=== PATIENT | female | born 1940 | race Caucasian/White ===

== ENCOUNTER 2023-12-07 15:24 | Outpatient (OUT) | payer MEDICARE, SELFPAY ==
--- NOTE | 2023-12-07 15:50 | XR_ITS ---
[facility] [id number] Patient Name: NOLAN CRAVEN MRN: [id number] date: 1940 Sex: F Assigned Patient Location: LAB Current Patient Location: Accession/Order Number: [id number] Exam Date: 12/07/2023 15:33 Report Date: 12/08/2023 06:53 At the request of: NAIN HARDY Procedure: XR knee RT 3V PROCEDURE: XR knee RT 3V COMPARISON: None. HISTORY: pain in right knee, effusion right knee FINDINGS: BONES:No acute fracture or dislocation. 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 Marginal osteophyte formation. Chondrocalcinosis. SOFT TISSUES:Negative. No visible soft tissue swelling. EFFUSION:None visible. OTHER: Heterotopic ossification suprapatellar. Vascular calcifications XR/XR knee RT 3V IMPRESSION: Moderate to severe degenerative changes Electronically authenticated by: RAMONITA HARDY Date: 12/08/2023 06:53
--- NOTE | 2023-12-07 15:50 | XR_ITS ---
[address] [id number] Patient Name: NOLAN CRAVEN MRN: [id number] date: 1940 Sex: F Assigned Patient Location: LAB Current Patient Location: Accession/Order Number: [id number] Exam Date: 12/07/2023 15:33 Report Date: 12/08/2023 06:52 At the request of: NAIN HARDY Procedure: XR hip JUSTINA EXAMINATION: XR hip JUSTINA HISTORY: bilateral hip pain COMPARISON: No relevant comparison available. FINDINGS: RIGHT FINDINGS: BONES: No acute fracture or dislocation. Minimal degenerative changes with marginal osteophyte formation. Mixed lytic and sclerotic changes of the pubic symphysis suggesting chronic changes SOFT TISSUES: Negative. No visible soft tissue swelling. OTHER: Negative. LEFT FINDINGS: BONES: No acute fracture or dislocation. Minimal degenerative changes with marginal osteophyte formation SOFT TISSUES: Negative. No visible soft tissue swelling. OTHER: Negative. XR/XR hip JUSTINA IMPRESSION: RIGHT CONCLUSION: Minimal degenerative changes LEFT CONCLUSION: Minimal degenerative changes Electronically authenticated by: RAMONITA HARDY Date: 12/08/2023 06:52
--- NOTE | 2023-12-07 15:50 | XR_ITS ---
[facility] [address] Patient Name: NOLAN CRAVEN MRN: [id number] date: 1940 Sex: F Assigned Patient Location: LAB Current Patient Location: LAB Accession/Order Number: [id number] Exam Date: 12/07/2023 15:33 Report Date: 12/08/2023 06:59 At the request of: NAIN HARDY Procedure: XR lumbar spine min 4V EXAMINATION: XR lumbar spine min 4V HISTORY: low back pain COMPARISON: No relevant comparison available. 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 Severe degenerative spondylosis and facet osteoarthropathy DISC SPACES: Severe disc space narrowing with endplate sclerosis and vacuum disks PARASPINOUS: Negative. No paraspinous abnormality is seen. OTHER: Vascular calcifications XR/XR lumbar spine min 4V IMPRESSION: Severe degenerative changes with rotatory levoscoliosis Electronically authenticated by: RAMONITA HARDY Date: 12/08/2023 06:59
== END 2023-12-07 15:25 | disposition home or self-care (01) ==
LOC: LAB 15:24
PROVIDERS: PCP Family Medicine; Visit Provider Nurse Practitioner
DX: R29.898 Other symptoms and signs involving the musculoskeletal system (principal); M25.551 Pain in right hip; M25.561 Pain in right knee; M25.461 Effusion, right knee; M54.50 Low back pain, unspecified
CPT/HCPCS: 72110; 73522; 73562

== ENCOUNTER 2024-01-20 09:44 | Outpatient (OUT) | payer MEDICARE, SELFPAY ==
--- OUTSIDE RECORDS SUMMARY | 2024-01-20 09:52 | XMS_ITS | CCD ---
Author Organization [facility] Care Team Providers Care Supervisor [facility] Name Role Phone PHYSICIAN, DEFAULT Admitting Unavailable PHYSICIAN, DEFAULT Attending Unavailable NORIEGACORINNE PUCKETT Primary Care Unavailable MOUKARBEL, DR TORRES Admitting Unavailable MOUKARBEL, DR TORRES Attending Unavailable NORIEGA ., DR CORINNE Ferreira Primary Care Unavailable MOUKARBEL, DR TORRES Consulting Unavailable MOUKARBEL, DR TORRES Admitting Unavailable MOUKARBEL, DR TORRES Attending Unavailable NORIEGA ., DR CORINNE Ferreira Primary Care Unavailable MOUKARBEL, DR TORRES Consulting Unavailable MOUKARBEL, DR TORRES Admitting Unavailable MOUKARBEL, DR TORRES Attending Unavailable NORIEGA ., DR CORINNE Ferreira Primary Care Unavailable MOUKARBEL, DR TORRES Consulting Unavailable MOUKARBEL, MELISSA Attending Unavailable MOUKARBEL, MELISSA Attending Unavailable MOUKARBEL, MELISSA Attending Unavailable Cindy, Jessie Marvin Attending Unavailable Cindy, Jessie Marvin Attending Unavailable Cindy, Jessie Marvin Attending Unavailable Cindy, Jessie Marvin Attending Unavailable Cindy, Jessie Marvin Admitting Unavailable Problems Active Problems Problem Classification Problem Date Documented Da te Episodic/Chronic Congestive heart failure; nonhypertensive (2 sources) Chronic diastolic (congestive) heart failure; Translations: [Chronic diastolic (congestive) heart failure] Onset: 11-17-2022 Chronic Essential hypertension (6 sources) Essential (primary) hypertension; Translations: [ESSENTIAL PRIMARY HYPERTENSION] Onset: 02-19-2022 Chronic Heart valve disorders (6 sources) Nonrheumatic tricuspid (valve) insufficiency; Translations: [NONRHEUMATIC TRICUSPID VALVE INSUFF] Onset: 07-29-2022 Chronic Pulmonary heart disease (2 sources) Pulmonary hypertension due to left heart disease; Translations: [Pulmonary hypertension due to left heart disease] Onset: 11-17-2022 Chronic Past or Other Problems Problem Classification Problem Date Documented Da te Episodic/Chronic Cardiac dysrhythmias (2 sources) Palpitations; Translations: [Palpitations] Onset: 07-29-2022 Episodic Other lower respiratory disease (6 sources) Shortness of breath; Translations: [SHORTNESS OF BREATH] Onset: 12-22-2022 Episodic Other lower respiratory disease (3 sources) Other forms of dyspnea; Translations: [OTHER FORMS OF DYSPNEA] Onset: 11-17-2022 Episodic Results Test Name Value Interpretation Reference Range Facility Ambulatory Visit Summaryon 0 12-16-2023 Ambulatory Visit Summary GISEL BENNETT :1940 Visit Date:12/16/2023 Ambulatory Visit Instructions Your Diagnosis Arthritis of right knee Hip pain, bilateral Scoliosis BMI 27.0-27.9,adult Non-smoker Your Care Team Attending Physician - Jessie Ty Primary Care Physician - Jessie Ty This Is Your Medications List albuterol (Albuterol (Eqv-Ventolin HFA) 90 mcg/inh inhalation aerosol) alendronate (alendronate 35 mg Tab) amlodipine (amLODIPine 5 mg Tab) aspirin (aspirin 81 mg Oral EC Tab) celecoxib (celecoxib 200 mg Cap) formoterol-mometasone (Dulera 100 mcg-5 mcg/inh inhalation aerosol) furosemide (furosemide 20 mg Tab) metoprolol (Lopressor 25 mg oral tablet) montelukast (montelukast 10 mg Tab) pantoprazole (Pantoprazole [address] Tab) [Image Removed: STOP]Stop taking these medications gabapentin (gabapentin 300 mg Cap) Procedures Performed Cardiac catheter (2013), Hiatal hernia (2013), Colonoscopy (2011), Surgery, DARLENE BSO - Total abdominal hysterectomy and bilateral salpingo-oophorectomy . Discharge Vitals Heart Rate (Peripheral) 98 Respiratory Rate 16 Blood Pressure 108/76 Height 151 cm Height 59 in Weight 63.4 kg Weight 139.48 lb BMI 27.81 Medications What How Much When Why Instructions New celecoxib (celecoxib 200 mg Cap) 1 Capsules By Mouth Every day Leg weakness, bilateral Hip pain, bilateral Right knee pain Swelling of right knee joint Low back pain BMI 27.0-27.9,adult Refills: 1 Pickup at [facility] Unchanged albuterol (Albuterol (Eqv-Ventolin HFA) 90 mcg/ inh inhalation aerosol) 2 Puffs Inhalation Every 6 hours Wellness examination Essential hypertension Fatigue Non-smoker BMI 27.0-27.9,adult Unchanged alendronate (alendronate 35 mg Tab) 1 Tablets By Mouth Every 7 days Unchanged amlodipine (amLODIPine 5 mg Tab) 1 Tablets By Mouth Every day Unchanged aspirin (aspirin 81 mg Oral EC Tab) 1 Tablets By Mouth Every day Unchanged formoterol-mometasone (Dulera 100 mcg-5 mcg/ inh inhalation aerosol) 2 Puffs Inhalation 2 times a day rinse mouth and throat after use Unchanged furosemide (furosemide 20 mg Tab) 1 Tablets By Mouth Every day Unchanged metoprolol (Lopressor 25 mg oral tablet) 1 Tablets By Mouth Every day Unchanged montelukast (montelukast 10 mg Tab) 1 Tablets By Mouth Once a day (in the evening) Unchanged pantoprazole (Pantoprazole [address] Tab) 1 Tablets By Mouth Every day Pharmacy Information [facility]: [address], [place] [id number] [phone] What How Much When Why Comments Stop Taking gabapentin (gabapentin 300 mg Cap) 1 Capsules By Mouth Once a day (at bedtime) Leg weakness, bilateral Hip pain, bilateral Right knee pain Swelling of right knee joint Low back pain BMI 27.0-27.9,adult Allergies No Known Allergies Problems Ongoing - Any problem that you are currently receiving treatment for. Arthritis of right knee BMI 27.0-27.9,adult Essential hypertension Fatigue Hip pain, bilateral Leg weakness, bilateral Low back pain Right knee pain Scoliosis Swelling of right knee joint Wellness examination Patient Survey You may receive a survey via text or e-mail asking about your office visit. Please share your experience with us by completing your survey. We appreciate your feedback and thank you for choosing us for your care. Normal [facility] Family Medicine Office/Clini c Noteon 12-16-2023 Family Medicine Office/Clinic Note HPI Staff Gisel is a 83 year old female presenting for 2 week follow up SAURABH 12/02/23 Bilateral leg weakness, x-rays ordered, started Celebrex,Medrol dose pack and Gabapentin. Pending improvement EMG and PT or pain management is discussed. pt states legs are feeling better and swelling is down. pt states knees aren't to bad. History of Present Illness pt presents today to discuss x ray results Review of Systems PHQ Score Initial Depression Screen Score: 0 SCORE ROS - Provider Constitutional: no fever, no chills, no sweats, no fatigue Respiratory: no shortness of breath, no cough, no orthopnea, no wheezing. Cardiovascular: no chest pain, no palpitations, no edema. Neurologic: no headache, no dizziness, no numbness, no weakness. Physical Exam Vitals & Measurements HR: 98(Peripheral) RR: 16 BP: 108/76 SpO2: 98% HT: 59 in HT: 151 cm WT: 63.4 kg WT: 139.48 lb BMI: 27.81 General: alert, no acute distress ENMT: oral mucosa moist, no pharyngeal erythema or exudate Cardiovascular: regular rate and rhythm, normal peripheral perfusion Respiratory: Lungs CTA, respirations non labored Extremities: no deformity, no trauma Neurological: oriented x 4, LOC appropriate for age, CN II-XII intact, motor strength equal & normal bilaterally, speech normal Assessment/Plan 1. Arthritis of right knee (M17.11: Unilateral primary osteoarthritis, right knee) right knee x ray is bone on bone. would like to refer to pain or ortho but patient does not want to do that at this time. states celebrex is really helping with the pain. she will contact us if pain returns. 2. Hip pain, bilateral (M25.551: Pain in right hip) arthritis in both hips. discussed referral to ortho. does nto want to do that at this time Ordered: celecoxib, 200 mg = 1 cap(s), Oral, Daily, # 90 cap(s), Refills(s) 1, Pharmacy: [facility], 151, cm, 12/16/23 15:40:00 EST, Height/Length Dosing, 63.4, kg, 12/16/23 15:40:00 EST, Weight Dosing celecoxib, 200 mg = 1 cap(s), Oral, Daily, # 30 cap(s), Refills(s) 0, Pharmacy: [facility], 151, cm, 12/02/23 15:29:00 EST, Height/Length Dosing, 140.4, kg, 12/02/23 15:29:00 EST, Weight Dosing 3. Scoliosis (M41.9: Scoliosis, unspecified) discussed s ray results. discussed referrral to ortho or pain management 4. BMI 27.0-27.9,adult (Z68.27: Body mass index [BMI] 27.0-27.9, adult) BMI education compelte Ordered: celecoxib, 200 mg = 1 cap(s), Oral, Daily, # 90 cap(s), Refills(s) 1, Pharmacy: [facility], 151, cm, 12/16/23 15:40:00 EST, Height/Length Dosing, 63.4, kg, 12/16/23 15:40:00 EST, Weight Dosing celecoxib, 200 mg = 1 cap(s), Oral, Daily, # 30 cap(s), Refills(s) 0, Pharmacy: [facility], 151, cm, 12/02/23 15:29:00 EST, Height/Length Dosing, 140.4, kg, 12/02/23 15:29:00 EST, Weight Dosing 5. Non-smoker (Z78.9: Other specified health status) continue not smoking Orders: montelukast, 10 mg = 1 tab(s), Oral, qPM, # 30 tab(s), Refills(s) 2, Pharmacy: [facility] Follow-up No qualifying data available Problem List/Past Medical History Ongoing Arthritis of right knee BMI 27.0-27.9,adult Essential hypertension Fatigue Hip pain, bilateral Leg weakness, bilateral Low back pain Right knee pain Scoliosis Swelling of right knee joint Wellness examination Historical No qualifying data Procedure/Surgical History Cardiac catheter (2013), Hiatal hernia (2013), Colonoscopy (2011), Surgery, DARLENE BSO - Total abdominal hysterectomy and bilateral salpingo-oophorectomy . Medications Albuterol (Eqv-Ventolin HFA) 90 mcg/inh inhalation aerosol, 2 puff(s), Inhalation, q6hr alendronate 35 mg Tab, 35 mg= 1 tab(s), Oral, q7day, 3 refills amLODIPine 5 mg Tab, 5 mg= 1 tab(s), Oral, Daily aspirin 81 mg Oral EC Tab, 81 mg= 1 tab(s), Oral, Daily celecoxib 200 mg Cap, 200 mg= 1 cap(s), Oral, Daily, 1 refills Dulera 100 mcg-5 mcg/inh inhalation aerosol, 2 puff(s), Inhalation, BID, 11 refills furosemide 20 mg Tab, 20 mg= 1 tab(s), Oral, Daily Lopressor 25 mg oral tablet, 25 mg= 1 tab(s), Oral, Daily montelukast 10 mg Tab, 10 mg= 1 tab(s), Oral, qPM, 3 refills Pantoprazole [address] Tab, 40 mg= 1 tab(s), Oral, Daily Allergies No Known Allergies Social History Tobacco Never (less than 100 in lifetime) Tobacco Use:. Never Smokeless Tobacco Use:. Household tobacco concerns: No., 12/16/2023 Family History Stroke: Mother and Sister. Immunizations Vaccine Date Status Comments influenza virus vaccine, inactivated 08/06/2023 Given SARS-CoV-2 (COVID-19) [id number] 08/25/2022 Recorded 2023-11-30: [id number] influenza virus vaccine, inactivated 08/31/2021 Recorded SARS-CoV-2 (COVID-19) mRNA-1273 vaccine 08/07/2021 Recorded SARS-CoV-2 (COVID-19) mRNA-1273 vaccine 11/28/2020 Recorded SARS-CoV-2 (COVID-19) mRNA-1273 vaccine 10/25/2020 Recorded influenza virus vaccine, inactivated 08/13/2019 Recorded influenza virus vaccine, inactivated 08/25/2018 Recorded (more content not included)... Normal [facility] Comment on above: Result Comment: Elec tronically Signed By: Jessie Ty\.br\Date and Time Signed: 12/16/23 15:59 EST Physician Orderon 12-03-2023 Physician Order [id number] [facility] Ambulatory Visit Summaryon 0 12-02-2023 Ambulatory Visit Summary GISEL BENNETT :1940 Visit Date:12/02/2023 Ambulatory Visit Instructions Your Diagnosis Leg weakness, bilateral Hip pain, bilateral Right knee pain Swelling of right knee joint Low back pain BMI 27.0-27.9,adult Pain in left hip Your Care Team Attending Physician - Jessie Ty Primary Care Physician - Jessie Ty This Is Your Medications List albuterol (Albuterol (Eqv-Ventolin HFA) 90 mcg/inh inhalation aerosol) alendronate (alendronate 35 mg Tab) alendronate (alendronate 35 mg Tab) amlodipine (amLODIPine 5 mg Tab) aspirin (aspirin 81 mg Oral EC Tab) formoterol-mometasone (Dulera 100 mcg-5 mcg/inh inhalation aerosol) formoterol-mometasone (Dulera 100 mcg-5 mcg/inh inhalation aerosol) furosemide (furosemide 20 mg Tab) metoprolol (Lopressor 25 mg oral tablet) montelukast (montelukast 10 mg Tab) montelukast (montelukast 10 mg Tab) pantoprazole (Pantoprazole [address] Tab) Procedures Performed Cardiac catheter (2013), Hiatal hernia (2013), Colonoscopy (2011), Surgery, DARLENE BSO - Total abdominal hysterectomy and bilateral salpingo-oophorectomy . Discharge Vitals Heart Rate (Peripheral) 76 Blood Pressure 132/70 Height 151 cm Height 59 in Weight 63.68 kg Weight 140.096 lb BMI 27.93 What to do next Scheduled Follow-Up Appointments Thursday 3:40 PM EST With: Jessie Ty Where: [facility] Family Medicine Office/Clini c Noteon 12-02-2023 Family Medicine Office/Clinic Note Chief Complaint weakness and pain in legs HPI Staff Patient presents for weakness in legs. Patient is present with daughter. Started 2 weeks ago. Bilateral leg pain radiating down legs into feet More on the right than in the left. Has been using a walker at times due to pain and weakness. Has tried Tylonol effective some. Has had a hx of blood clot in left leg in the past. flu: UTD 08/06/23 History of Present Illness weakness in JUSTINA legs, low back pain, JUSTINA hip pain, right knee pain and swelling Review of Systems PHQ Score Initial Depression Screen Score: 0 SCORE ROS - Provider Constitutional: no fever, no chills, no sweats, no fatigue Respiratory: no shortness of breath, no cough, no orthopnea, no wheezing. Cardiovascular: no chest pain, no palpitations, no edema. Neurologic: no headache, no dizziness, no numbness, no weakness. Physical Exam Vitals & Measurements HR: 76(Peripheral) BP: 132/70 HT: 59 in HT: 151 cm WT: 63.68 kg WT: 140.096 lb BMI: 27.93 General: alert, no acute distress ENMT: oral mucosa moist, no pharyngeal erythema or exudate Cardiovascular: regular rate and rhythm, normal peripheral perfusion Respiratory: Lungs CTA, respirations non labored Extremities: no deformity, no trauma Neurological: oriented x 4, LOC appropriate for age, CN II-XII intact, motor strength equal & normal bilaterally, speech normal Assessment/Plan 1. Leg weakness, bilateral (R29.898: Other symptoms and signs involving the musculoskeletal system) pt c/o leg weakness that has worsened the last couple of weeks. had to start using a walker. will order x rays, celebrex, medrol dose pack and gabapentin. discussed EMG but pt would like to see if gabapentin helps with leg pain before doing that. pt to return in 2 weeks to go over radiology reports. may consider referral to PT or Pain management depending on results. Ordered: celecoxib, 200 mg = 1 cap(s), Oral, Daily, # 30 cap(s), Refills(s) 0, Pharmacy: [facility], 151, cm, 12/02/23 15:29:00 EST, Height/Length Dosing, 140.4, kg, 12/02/23 15:29:00 EST, Weight Dosing gabapentin, 300 mg = 1 cap(s), Oral, Once a day (at bedtime), # 30 cap(s), Refills(s) 0, Pharmacy: [facility], 151, cm, 12/02/23 15:29:00 EST, Height/Length Dosing, 140.4, kg, 12/02/23 15:29:00 EST, Weight Dosing methylPREDNISolone, = 1 packet(s), Oral, As Directed, as directed on package labeling, X 6 day(s), # 21 tab(s), Refills(s) 0, Pharmacy: [facility], 151, cm, 12/02/23 15:29:00 EST, Height/Length Dosing, 140.4, kg, 12/02/23 15:29:00 EST, Weight Dosing 2. Hip pain, bilateral (M25.551: Pain in right hip) Bilateral hip pain that shoots down her legs to her kenees Ordered: celecoxib, 200 mg = 1 cap(s), Oral, Daily, # 30 cap(s), Refills(s) 0, Pharmacy: [facility], 151, cm, 12/02/23 15:29:00 EST, Height/Length Dosing, 140.4, kg, 12/02/23 15:29:00 EST, Weight Dosing gabapentin, 300 mg = 1 cap(s), Oral, Once a day (at bedtime), # 30 cap(s), Refills(s) 0, Pharmacy: [facility], 151, cm, 12/02/23 15:29:00 EST, Height/Length Dosing, 140.4, kg, 12/02/23 15:29:00 EST, Weight Dosing methylPREDNISolone, = 1 packet(s), Oral, As Directed, as directed on package labeling, X 6 day(s), # 21 tab(s), Refills(s) 0, Pharmacy: [facility], 151, cm, 12/02/23 15:29:00 EST, Height/Length Dosing, 140.4, kg, 12/02/23 15:29:00 EST, Weight Dosing 3. Right knee pain (M25.561: Pain in right knee) right knee is painful and swollen. Ordered: celecoxib, 200 mg = 1 cap(s), Oral, Daily, # 30 cap(s), Refills(s) 0, Pharmacy: [facility], 151, cm, 12/02/23 15:29:00 EST, Height/Length Dosing, 140.4, kg, 12/02/23 15:29:00 EST, Weight Dosing gabapentin, 300 mg = 1 cap(s), Oral, Once a day (at bedtime), # 30 cap(s), Refills(s) 0, Pharmacy: [facility], 151, cm, 12/02/23 15:29:00 EST, Height/Length Dosing, 140.4, kg, 12/02/23 15:29:00 EST, Weight Dosing methylPREDNISolone, = 1 packet(s), Oral, As Directed, as directed on package labeling, X 6 day(s), # 21 tab(s), Refills(s) 0, Pharmacy: [facility], 151, cm, 12/02/23 15:29:00 EST, Height/Length Dosing, 140.4, kg, 12/02/23 15:29:00 EST, Weight Dosing 4. Swelling of right knee joint (M25.461: Effusion, right knee) see above . x ray ordered Ordered: celecoxib, 200 mg = 1 cap(s), Oral, Daily, # 30 cap(s), Refills(s) 0, Pharmacy: [facility], 151, cm, 12/02/23 15:29:00 EST, Height/Length Dosing, 140.4, kg, 12/02/23 15:29:00 EST, Weight Dosing gabapentin, 300 mg = 1 cap(s), Oral, Once a day (at bedtime), # 30 cap(s), Refills(s) 0, Pharmacy: [facility], 151, cm, 12/02/23 15:29:00 EST, Height/Length Dosing, 140.4, kg, 12/02/23 15:29:00 EST, Weight Dosing methylPREDNISolone, = 1 packet(s), Oral, As Directed, as directed on package labeling, X 6 day(s), # 21 tab(s), Refills(s) 0, Pharmacy: [facility], 151, cm, 12/02/23 15:29:00 EST, Height/Length Dosing, 140.4, kg, 12/02/23 15:29:00 EST, Michelle (more content not included)... [facility] Comment on above: Result Comment: Elec tronically Signed By: Jessie Ty\.br\Date and Time Signed: 12/02/23 17:02 EST [facility] - Clinical Noteon [facility] - Clinical Note [id number] [facility] Ambulatory Visit Summaryon 1 Ambulatory Visit Summary GISEL BENNETT :1940 Visit Date:08/06/2023 Ambulatory Visit Instructions Your Diagnosis BMI 27.0-27.9,adult Non-smoker Wellness examination Your Care Team Attending Physician - Jessie Ty Primary Care Physician - Jessie Ty This Is Your Medications List alendronate (alendronate 35 mg Tab) amlodipine (amLODIPine 5 mg Tab) aspirin (aspirin 81 mg Oral EC Tab) formoterol-mometasone (Dulera 100 mcg-5 mcg/inh inhalation aerosol) furosemide (furosemide 20 mg Tab) metoprolol (Lopressor 25 mg oral tablet) montelukast (montelukast 10 mg Tab) pantoprazole (Pantoprazole [address] Tab) Procedures Performed Cardiac catheter (2013), Hiatal hernia (2013), Colonoscopy (2011), Surgery, DARLENE BSO - Total abdominal hysterectomy and bilateral salpingo-oophorectomy . Discharge Vitals Heart Rate (Peripheral) 62 Respiratory Rate 18 Blood Pressure 116/72 Height 151 cm Height 59 in Weight 62.55 kg Weight 137.61 lb BMI 27.43 Medications What How Much When Instructions Unchanged alendronate (alendronate 35 mg Tab) 1 Tablets By Mouth Every week Unchanged amlodipine (amLODIPine 5 mg Tab) 1 Tablets By Mouth Every day Unchanged aspirin (aspirin 81 mg Oral EC Tab) 1 Tablets By Mouth Every day Unchanged formoterol-mometasone (Dulera 100 mcg-5 mcg/ inh inhalation aerosol) 2 Puffs Inhalation 2 times a day Unchanged furosemide (furosemide 20 mg Tab) 1 Tablets By Mouth Every day Unchanged metoprolol (Lopressor 25 mg oral tablet) 1 Tablets By Mouth Every day Unchanged montelukast (montelukast 10 mg Tab) 1 Tablets By Mouth Once a day (in the evening) Unchanged pantoprazole (Pantoprazole [address] Tab) 1 Tablets By Mouth Every day Allergies No Known Allergies Problems Ongoing - Any problem that you are currently receiving treatment for. Essential hypertension Wellness examination Patient Survey You may receive a survey via text or e-mail asking about your office visit. Please share your experience with us by completing your survey. We appreciate your feedback and thank you for choosing us for your care. Normal [facility] Auto Diffon 08-06-2023 Basophils/100 WBC (Bld) 0.7 % Normal 0.0-2.0 [facility] Comment on above: Order Comment: Order Added by Discern Expert. Performed By: #### 1 [id number], [id number], [id number], [id number], [id number] #### [facility] [address] [place] [address] Basophils/Leukocy mckenzie Auto (Bld) [Pure # fraction] 0.0 E9/L Normal 0.0-0.2 [facility] Comment on above: Order Comment: Order Added by Discern Expert. Performed By: #### 1 [id number], [id number], [id number], [id number], [id number] #### [facility] [address] [place] [address]697 Eosinophils/100 WBC (Bld) 2.3 % Normal 0.0-8.0 [facility] Comment on above: Order Comment: Order Added by Discern Expert. Performed By: #### 1 [id number], [id number], 0277125, [id number], [id number] #### [facility] [address] [place] [address]394 Eosinophils/Leuko cytes Auto (Bld) [Pure # fraction] 0.1 E9/L Normal 0.0-0.5 [facility] Comment on above: Order Comment: Order Added by Discern Expert. Performed By: #### 1 [id number], [id number], [id number], [id number], [id number] #### [facility] [address] [place] [address]507 Lymphocytes/100 WBC (Bld) 21.4 % Normal 14.0-50.0 [facility] Comment on above: Order Comment: Order Added by Discern Expert. Performed By: #### 1 [id number], 9409977, 0405104, 1790024, [id number] #### [facility] [address] [place] [address]374 Lymphocytes/Leuko cytes Auto (Bld) [Pure # fraction] 1.1 E9/L Normal 1.0-4.0 [facility] Comment on above: Order Comment: Order Added by Discern Expert. Performed By: #### 1 [id number], 2335223, 3978135, 4913373, 6489644 #### [facility] [address] [place] [address]759 Monocytes/100 WBC (Bld) 12.2 % Normal 4.0-14.0 [facility] Comment on above: Order Comment: Order Added by Discern Expert. Performed By: #### 1 [id number], 1933901, 5170020, 6550720, [id number] #### [facility] [address] [place] [address] Monocytes/Leukocy mckenzie Auto (Bld) [Pure # fraction] 0.6 E9/L Normal 0.2-1.0 [facility] Comment on above: Order Comment: Order Added by Discern Expert. Performed By: #### 1 [id number], 0364922, 3001308, 6465927, [id number] #### [facility] [address] [place] [address] Neutrophils/100 WBC (Bld) 63.4 % Normal 36.0-75.0 [facility] Comment on above: Order Comment: Order Added by Discern Expert. Performed By: #### 1 [id number], 9371823, 0355344, 3919764, 4949142 #### [facility] [address] [place] [address] Neutrophils/Leuko cytes Auto (Bld) [Pure # fraction] 3.2 E9/L Normal 2.0-7.5 [facility] Comment on above: Order Comment: Order Added by Discern Expert. Performed By: #### 1 [id number], 4419099, 1550998, 9266987, [id number] #### [facility] [address] [place] [address]21 CBC w/ Auto Diffon 3 Erythrocyte distribution width (RBC) [Ratio] 15.4 % High 10.9-14.2 [facility] Comment on above: Performed By: #### 1 [id number], 7446476, 0854014, 6724133, 4409207 #### [facility] [address] [place] [address] Hematocrit (Bld) [Volume fraction] 42.5 % Normal 34.0-46.0 [facility] Comment on above: Performed By: #### 1 [id number], 1842468, 5966813, 8039768, 4552104 #### [facility] [address] [place] [address] 60028 Hemoglobin (Bld) [Mass/Vol] 13.8 g/dL Normal 12.0-16.0 [facility] Comment on above: Performed By: #### 1 [id number], 4635921, 3496373, 4820897, 8450149 #### [facility] [address] [place] [address] MCH (RBC) [Entitic mass] 28.1 pg Normal 27.0-34.0 [facility] Comment on above: Performed By: #### 1 [id number], 2415794, 7015518, 6389346, 2443048 #### [facility] [address] [place] [address] MCHC (RBC) [Mass/Vol] 32.4 g/dL Normal 31.4-36.0 [facility] Comment on above: Performed By: #### 1 [id number], 0282656, 8669427, 7872672, 4322900 #### [facility] [address] [place] [address] 14781 MCV (RBC) [Entitic vol] 86.7 fL Normal 80.0-100.0 [facility] Comment on above: Performed By: #### 1 [id number], 0015823, 8595308, 9029755, 1790954 #### [facility] [address] [place] [address]30 Platelet mean volume (Bld) [Entitic vol] 9.7 fL Normal 6.4-10.8 [facility] Comment on above: Performed By: #### 1 [id number], 2867470, 8499357, 4261807, [id number] #### [facility] [address] [place] [address] Platelets (Bld) [#/Vol] 286.0 E9/L Normal 150.0-500.0 [facility] Comment on above: Performed By: #### 1 [id number], 7945957, 7434476, 4174587, 4984416 #### [facility] [address] [place] [address] RBC (Bld) [#/Vol] 4.9 E12/L Normal 4.3-5.9 [facility] Comment on above: Performed By: #### 1 6602667, 0178547, 3394853, 0456606, 6108915 #### [facility] [address] [place] [address] WBC corrected for nucl RBC Auto (Bld) [#/Vol] 5.1 E9/L Normal 4.0-11.0 [facility] Comment on above: Performed By: #### 1 7532311, 2455496, 2498776, 2593507, 7304562 #### [facility] [address] [place] [address] CMPon 08-06-2023 Albumin [Mass/Vol] 4.2 g/dL Normal 3.3-5.0 [facility] Comment on above: Performed By: #### 1 5881493, 1436996, 7663345, 7971155, 8879955 #### [facility] [address] [place] [address] Albumin/Globulin (S) [Mass conc ratio] 1.2 Normal 1.1-2.2 [facility] Comment on above: Performed By: #### 1 6479192, 7752902, 7853815, 8414659, 4331562 #### [facility] [address] [place] [address] ALP [Catalytic activity/Vol] 52 Int._Unit/L Normal 21-98 [facility] Comment on above: Performed By: #### 1 7534759, 5498507, 2049093, 5663130, 4479655 #### [facility] [address] [place] [address] ALT No additional P-5'-P [Catalytic activity/Vol] 15 Int._Unit/L Normal 6-46 [facility] Comment on above: Performed By: #### 1 1928276, 5652677, 3030712, 3224811, 3235075 #### [facility] [address] [place] [address] Anion gap [Moles/Vol] 6 mmol/L Normal 6-16 [facility] Comment on above: Performed By: #### 1 7430422, 9111497, 9994457, 1167443, 7993051 #### [facility] [address] [place] [address] AST [Catalytic activity/Vol] 19 Int._Unit/L Normal 5-43 [facility] Comment on above: Performed By: #### 1 9115792, 5238775, 9492850, 6488595, 8991469 #### [facility] [address] [place] [address] Bilirubin [Mass/Vol] 0.4 mg/dL Normal 0.0-1.1 [facility] Comment on above: Performed By: #### 1 5837093, 7367095, 6261302, 0030356, 8110023 #### [facility] [address] [place] [address] Calcium [Mass/Vol] 9.0 mg/dL Normal 8.9-11.1 [facility] Comment on above: Performed By: #### 1 1729504, 0233548, 6429013, 9374260, 0313556 #### [facility] [address] [place] [address] Chloride [Moles/Vol] 107 mmol/L Normal 101-111 [facility] Comment on above: Performed By: #### 1 6079758, 4562993, 3585447, 2772934, 6146223 #### [facility] [address] [place] [address] CO2 [Moles/Vol] 28 mmol/L Normal 21-31 [facility] Comment on above: Performed By: #### 1 7946609, 4094141, 5277929, 5310659, 1425832 #### [facility] [address] [place] [address] Creatinine [Mass/Vol] 1.0 mg/dL Normal 0.5-1.3 [facility] Comment on above: Performed By: #### 1 5029046, 6071255, 8639467, 4243071, 0496404 #### [facility] [address] [place] [address] Globulin (S) [Mass/Vol] 3.4 g/dL Normal 1.4-4.0 [facility] Comment on above: Performed By: #### 1 9181412, 4486030, 5866208, 3148534, 8459577 #### [facility] [address] [place] [address] Glucose [Mass/Vol] 101 mg/dL Normal 55-199 [facility] Comment on above: Result Comment: If t his glucose result represents a fasting glucose, interpretation should refer to the following reference range: 55-99 mg/dL Performed By: #### 1 2556601, 7431315, 6040441, 2989728, 5707594 #### [facility] [address] [place] [address] Potassium [Moles/Vol] 4.3 mmol/L Normal 3.5-5.3 [facility] Comment on above: Performed By: #### 1 6022552, 3419389, 8802874, 4987462, 6995716 #### [facility] [address] [place] [address] Protein [Mass/Vol] 7.6 g/dL Normal 6.0-7.8 [facility] Comment on above: Performed By: #### 1 3111453, 9516962, 6831898, 4427674, 8541559 #### [facility] [address] [place] [address] Sodium [Moles/Vol] 137 mmol/L Normal 135-145 [facility] Comment on above: Performed By: #### 1 7360708, 1701531, 0988780, 1457569, 0303294 #### [facility] [address] [place] [address] Urea nitrogen [Mass/Vol] 22 mg/dL High 5-21 [facility] Comment on above: Performed By: #### 1 5457898, 3615904, 3998250, 0610504, 3601317 #### [facility] [address] [place] [address] Urea nitrogen/Creatini ne [Mass ratio] 22 No Units High 10- [facility] Comment on above: Performed By: #### 1 0018912, 9235030, 7825960, 0863712, 9033162 #### [facility] [address] [place] [address] Consent for Flu Vaccineon Consent for Flu Vaccine [id number] .00TIFF Normal [facility] Family Medicine Office/Clini c Noteon 08-06-2023 Family Medicine Office/Clinic Note HPI Staff Gisel is a 83 year old female presenting to psychiatric hospital care Establish Care: History: Any previous diagnosis: osteoporosis, asthma, vitamin D deficiency History of seeing any specialist: Ratings Analyst Dr Colon When was your last doctors visit: Last provider: Dr Noriega Any recent labs: none within the last year, did just have TSH checked at [facility] about 1-2 weeks ago Health Maintenance UTD: Colonoscopy: 05/01/21 Mammogram: aged out Pelvic/Pap: aged out Acute: Current issues/complaints: pt need refill on Dulera sent to [facility], then Alendronate and montelukast sent to [facility] . Right hip discomfort intermittent feels like hips coming out of socket. onset 1-2 months ago History of [facility] will need annual labs Review of Systems PHQ Score Initial Depression Screen Score: 0 ROS - Provider Constitutional: no fever, no chills, no sweats, no fatigue Respiratory: no shortness of breath, no cough, no orthopnea, no wheezing. Cardiovascular: no chest pain, no palpitations, no edema. Neurologic: no headache, no dizziness, no numbness, no weakness. Physical Exam Vitals & Measurements HR: 62(Peripheral) RR: 18 BP: 116/72 HT: 59 in HT: 151 cm WT: 62.55 kg WT: 137.61 lb BMI: 27.43 General: alert, no acute distress ENMT: oral mucosa moist, no pharyngeal erythema or exudate Cardiovascular: regular rate and rhythm, normal peripheral perfusion Respiratory: Lungs CTA, respirations non labored Extremities: no deformity, no trauma Neurological: oriented x 4, LOC appropriate for age, CN II-XII intact, motor strength equal & normal bilaterally, speech normal Assessment/Plan 1. Wellness examination (Z00.00: Encounter for general adult medical examination without abnormal findings) pt presents for wellness visit. will need labs today. pt c/o right sided hip pain but does not always hurt. suggested Tylenol arthritis. all questions answered. RTC as needed Ordered: influenza virus vaccine, inactivated, 0.7 mL, Injection, IntraMuscular, Once, Stop date 08/06/23 10:00:00 EDT, Routine, Start date 08/06/23 10:00:00 EDT CBC w/ Auto Diff Comprehensive Metabolic Panel Lab Specimen Collect 83042 Lipid Panel 2. Essential hypertension (I10: Essential (primary) hypertension) BP at goal. will send refills on meds. will draw labs Ordered: CBC w/ Auto Diff Comprehensive Metabolic Panel Lab Specimen Collect 40349 Lipid Panel 3. Fatigue (R53.83: Other fatigue) will draw labs today Ordered: CBC w/ Auto Diff Comprehensive Metabolic Panel Lab Specimen Collect 03331 Lipid Panel 4. Non-smoker (Z78.9: Other specified health status) continue not smoking Ordered: influenza virus vaccine, inactivated, 0.7 mL, Injection, IntraMuscular, Once, Stop date 08/06/23 10:00:00 EDT, Routine, Start date 08/06/23 10:00:00 EDT 5. BMI 27.0-27.9,adult (Z68.27: Body mass index [BMI] 27.0-27.9, adult) BMI education complete Ordered: influenza virus vaccine, inactivated, 0.7 mL, Injection, IntraMuscular, Once, Stop date 08/06/23 10:00:00 EDT, Routine, Start date 08/06/23 10:00:00 EDT Encounter for immunization (Z23: Encounter for immunization) flu shot given in office Ordered: FIRST VACCINE w/o Secretary To The Vice President Admin Charge [address] Orders: alendronate, 35 mg = 1 tab(s), Oral, q7day, # 12 tab(s), Refills(s) 3, Pharmacy: [facility], 151, cm, 08/06/23 8:53:00 EDT, Height/Length Dosing, 62.5, kg, 08/06/23 8:53:00 EDT, Weight Dosing formoterol-mometasone , 2 puff(s), Inhalation, BID, 13 gram, Refill(s) 11, rinse mouth and throat after use, [facility], 151, cm, 08/06/23 8:53:00 EDT, Height/Length Dosing, 62.5, kg, 08/06/23 8:53:00 EDT, Weight Dosing montelukast, 10 mg = 1 tab(s), Oral, qPM, # 90 tab(s), Refills(s) 3, Pharmacy: [facility], 151, cm, 08/06/23 8:53:00 EDT, Height/Length Dosing, 62.5, kg, 08/06/23 8:53:00 EDT, Weight Dosing Follow-up No qualifying data available Problem List/Past Medical History Ongoing Essential hypertension Fatigue Wellness examination Historical No qualifying data Procedure/Surgical History Cardiac catheter (2013), Hiatal hernia (2013), Colonoscopy (2011), Surgery, DARLENE BSO - Total abdominal hysterectomy and bilateral salpingo-oophorectomy . Medications alendronate 35 mg Tab, 35 mg= 1 tab(s), Oral, qWeek alendronate 35 mg Tab, 35 mg= 1 tab(s), Oral, q7day, 3 refills amLODIPine 5 mg Tab, 5 mg= 1 tab(s), Oral, Daily aspirin 81 mg Oral EC Tab, 81 mg= 1 tab(s), Oral, Daily Dulera 100 mcg-5 mcg/inh inhalation aerosol, 2 puff(s), Inhalation, BID Dulera 100 mcg-5 mcg/inh inhalation aerosol, 2 puff(s), Inhalation, BID, 11 refills furosemide 20 mg Tab, 20 mg= 1 tab(s), Oral, Daily Lopressor 25 mg oral tablet, 25 mg= 1 tab(s), Oral, Daily montelukast 10 mg Tab, 10 mg= 1 tab(s), Oral, qPM, 2 refills montelukast 10 mg Tab, 10 mg= 1 tab(s), Oral, qPM, 3 refills Pantoprazol (more content not included)... Normal [facility] Comment on above: Result Comment: Elec tronically Signed By: Jessie Ty\.traci\Date and Time Signed: 08/06/23 09:34 EDT Lipid Panelon 08-06-2023 Cholesterol [Mass/Vol] 283 mg/dL High 120-200 [facility] Comment on above: Performed By: #### 1 5291117, 5374113, 1974373, 1743462, 5600207 #### [facility] [address] [place] [address] Cholesterol in HDL [Mass/Vol] 60 mg/dL Invalid Interpretation Code [facility] Comment on above: Result Comment: HDL > or equal to 60 mg/dL: Low cardiovascular risk HDL < 40 mg/dL : High cardiovascular risk Performed By: #### 1 1438601, 1928149, 1471102, 3243307, 7154192 #### [facility] [address] [place] [address] Cholesterol in LDL [Mass/Vol] 204 mg/dL High <=129 [facility] Comment on above: Performed By: #### 1 2799890, 6776080, 0781208, 1571355, 1062760 #### [facility] [address] [place] [address] Cholesterol in VLDL [Mass/Vol] 18 mg/dL Normal 7-40 [facility] Comment on above: Performed By: #### 1 4803264, 1831417, 4840225, 9424205, 2300478 #### [facility] [address] [place] [address] Triglyceride [Mass/Vol] 92 mg/dL Normal <=149 [facility] Comment on above: Performed By: #### 1 9730146, 4257029, 3953303, 6151431, 6276717 #### [facility] [address] [place] [address] eGFRon 08-06-2023 GFR/1.73 sq M.predicted among non-blacks MDRD (S/P/Bld) [Vol rate/Area] 55 mL/min/1.73 m2 Low >=59 [facility] Comment on above: Order Comment: Order added by Discern Expert. Result Comment: Well Services Operator ca kidney disease could be indicated at eGFR's of less than 60 mL/min/1.73m2. Kidney failure is indicated at less than 15 mL/min/1.73m2. Performed By: #### 1 3059859, 0406813, 1084235, 0246092, 7508366 #### [facility] [address] [place] [address] Lab Reportson 07-29-2023 Lab Reports [id number] .00TIFF Normal [facility] Office Visiton 07-24-2023 Follow-up visit [id number] Panda Shavonne 1940 F Date Provider Department Center 07/24/2023 MELISSA CAMPOS PB [facility] Family History Problem Relation Age of Onset Asthma Other Cancer Other Family Status - Relation Status Age at Other Level of Service:81338 [place] OFFICE/OUTPATIENT ESTABLISHED LOW MDM 20-29 MIN Reason for Visit and Comments: Follow-up [670818] Normal [facility] Office Visiton 12-22-2022 Follow-up visit [id number] Panda Shavonne 1940 F Date Provider Department Center 12/22/2022 MELISSA CAMPOS PB [facility] Family History Problem Relation Age of Onset Asthma Other Cancer Other Family Status - Relation Status Age at Other Level of Service:62118 SC OFFICE/OUTPATIENT ESTABLISHED LOW MDM 20-29 MIN Reason for Visit and Comments: Valve Disorder [3372] Congestive Heart Failure [127] Hypertension [295220] Normal [facility] BNPon 11-26-2022 Natriuretic peptide B (Bld) [Mass/Vol] 366.0 pg/mL Normal <=1,800.0 [facility] Comment on above: Performed By: #### B PEARLER, CMP #### [facility] [address] [address] [address] Kaitlynn Joseph CBC AUTO DIFFon 11-26-2022 BASO # 0.1 103/ul Normal 0.0-0.1 [facility] Comment on above: Performed By: #### C BC #### [facility] [address] [place] [address] Dr. Kaitlynn Joseph Basophils/100 WBC (Bld) 0.7 % Normal 0.2-2.0 [facility] Comment on above: Performed By: #### C BC #### [facility] [address] [place] [address] Dr. Kaitlynn Joseph EO # 0.2 103/ul Normal 0.0-0.[address] [facility] Comment on above: Performed By: #### C BC #### [facility] [address] [place] [address] Dr. Kaitlynn Joseph Eosinophils/100 WBC (Bld) 2.8 % Normal 0.9-7.0 [facility] Comment on above: Performed By: #### C BC #### [facility] [address] [place] [address] Dr. Kaitlynn Joseph Erythrocyte distribution width (RBC) [Ratio] 14.3 % Normal 11.0-15.0 [facility] Comment on above: Performed By: #### C BC #### [facility] [address] [place] [address] Dr. Kaitlynn Joseph Hematocrit (Bld) [Volume fraction] 42.6 % Normal 36.0-48.0 [facility] Comment on above: Performed By: #### C BC #### [facility] [address] [place] [address] Dr. Kaitlynn Joseph Hemoglobin (Bld) [Mass/Vol] 13.7 g/dL Normal 12.0-16.0 [facility] Comment on above: Performed By: #### C BC #### [facility] [address] [place] [address] Dr. Kaitlynn Joseph IG # 0.02 10e3/ul Normal 0.00-0.[address] [facility] Comment on above: Performed By: #### C BC #### [facility] [address] [place] [address] Dr. Kaitlynn Joseph IG % 0.3 % Normal 0.0-0.[address] [facility] Comment on above: Performed By: #### C BC #### [facility] [address] [place] [address] Dr. Kaitlynn Joseph LYMPH # 1.3 103/ul Normal 1.2-3.[address] [facility] Comment on above: Performed By: #### C BC #### [facility] [address] [place] [address] Dr. Kaitlynn Joseph Lymphocytes/100 WBC (Bld) 19.8 % Critically low 20.5-60.0 [facility] Comment on above: Performed By: #### C BC #### [facility] [address] [place] [address] Dr. Kaitlynn Joseph MANUAL DIFF REQ NO Normal [facility] Comment on above: Performed By: #### C BC #### [facility] [address] [place] [address] Dr. Kaitlynn Joseph MCH (RBC) [Entitic mass] 28.2 pg Normal 26.7-34.0 [facility] Comment on above: Performed By: #### C BC #### [facility] [address] [place] [address] Dr. Kaitlynn Joseph MCHC (RBC) [Mass/Vol] 32.2 g/dL Normal 29.9-35.2 [facility] Comment on above: Performed By: #### C BC #### [facility] [address] [place] [address] Dr. Kaitlynn Joseph MCV (RBC) [Entitic vol] 87.8 fL Normal 81.0-99.0 [facility] Comment on above: Performed By: #### C BC #### [facility] [address] [place] [address] Dr. Kaitlynn Joseph MONO # 0.7 103/ul Normal 0.3-0.[address] [facility] Comment on above: Performed By: #### C BC #### [facility] [address] [place] [address] Dr. Kaitlynn Joseph Monocytes/100 WBC (Bld) 10.5 % Normal 1.7-12.0 [facility] Comment on above: Performed By: #### C BC #### [facility] [address] [address] [address] Kaitlynn Joseph NEUT # 4.5 103/ul Normal 1.4-6.[address] [facility] Comment on above: Performed By: #### C BC #### [facility] [address] [place] [address] Dr. Kaitlynn Joseph Neutrophils/100 WBC (Bld) 65.9 % Normal 43.0-75.0 [facility] Comment on above: Performed By: #### C BC #### [facility] [address] [place] [address] Dr. Kaitlynn Joseph Platelet mean volume (Bld) [Entitic vol] 10.2 fL Normal 9.5-13.[address] [facility] Comment on above: Performed By: #### C BC #### [facility] [address] [place] [address] Dr. Kaitlynn Joseph PLT 292 103/ul Normal 150-[address] [facility] Comment on above: Performed By: #### C BC #### [facility] [address] [place] [address] Dr. Kaitlynn Joseph RBC 4.85 106/ul Normal 4.20-5.[address] [facility] Comment on above: Performed By: #### C BC #### [facility] [address] [place] [address] Dr. Kaitlynn Joseph WBC 6.8 103/ul Normal 4.0-11.0 [facility] Comment on above: Performed By: #### C BC #### [facility] [address] [place] [address] Dr. Kaitlynn Joseph ECHOCARDIO M/2D COMPLETEon 0 11-26-2022 ECHOCARDIO M/2D COMPLETE Patient: GISEL BENNETT Exam Date: 11/26/2022 : 1940 Gender:F Ordering : DR MELISSA PINA M.D. Admission #: [id number] Family : Order #: [id number] CLICK HERE TO VIEW EXAM ECHOCARDIOGRAM REPORT PROCEDURE: CARDIO PULMONARY ECHOCARDIO M/2D COMP INDICATIONS: Nonrheumatic tricuspid valve regurgitation COMPARISON: None. DESCRIPTION: COMPLETE ECHOCARDIOGRAM Real-time transthoracic echocardiography with 2D, M-mode, spectral and color flow Doppler performed. QUALITY: Technical quality was good. LEFT VENTRICLE: Normal chamber size. Normal left ventricular wall thickness. Global left ventricular systolic function is normal. LV EF: Calculated left ventricular ejection fraction is 60%. DIASTOLIC: Grade I diastolic dysfunction. ATRIAL SEPTUM: LEFT ATRIUM: Mild dilatation. RIGHT ATRIUM: Severe dilatation. RIGHT VENTRICLE: Moderate dilatation. Normal right ventricular systolic function. TRICUSPID VALVE: Normal mobility and thickness. There is poor coaptation of the valve leaflets. No stenosis with moderate to severe regurgitation. Mild pulmonary hypertension. RVSP 40 mmHg MITRAL VALVE: Normal mobility and thickness. No evidence of mitral valve stenosis. There is no mitral annular calcification. Trivial mitral regurgitation. AORTIC VALVE: Normal trileaflet appearance. Thickened aortic valve. Normal leaflet mobility. No evidence of aortic valve stenosis. DVI 0.7. Trivial aortic regurgitation. AORTIC ROOT: Normal diameter and appearance. PULMONIC VALVE: Normal thickness and mobility. No stenosis. Mild regurgitation. PERICARDIUM: No evidence of pericardial effusion. IVC: Collapses with inspirations. Normal size. PLEURA: CONCLUSION: 1. Left ventricle is normal in size with normal systolic function. LVEF is 60%. 2. The right ventricle is moderately dilated with normal systolic function. 3. Severe right atrial dilatation. 4. Poor coaptation of the tricuspid valve leaflets with moderate to severe regurgitation. 5. Mildly elevated right-sided pressures. RVSP is 40 mmHg. Adult Echocardiography Procedure Report Left Ventricle LVEDD (3.7 - 5.6 cm): 4.37 cm LVESD (2.2 - 4.0 cm): 2.50 cm LVIVS thickness (0.6 - 1.2 cm): 0.86 cm LVPW thickness (0.5 - 1.0 cm): 0.73 cm e': 0.06 m/s E - e': 12.85 LVOT Max Gradient: 4.51 mm[Hg] Peak Velocity (LVOT): 1.06 m/s Mean Velocity (LVOT): 0.70 m/s LVOT Diameter 1.91 cm Left Ventricular Ejection Fraction: 60 % Left Atrium LA Volume Index (2D A2C): 63.14 ml, 63.14 ml Left Atrium Systolic Dimension: 2.84 cm Mitral Valve MV E to A Ratio: 0.71 Mitral Valve A-Wave Peak Velocity: 1.12 m/s Mitral Valve E-Wave Peak Velocity: 0.79 m/s Right Ventricle RV Internal Diastolic Dimension: 4.13 cm Aorta AO Root Diam: 2.71 cm Ascending Ao Diam: 3.06 cm Aortic Valve AoV Area (Peak Eamon): 1.47 cm2, 1.12 cm2 AoV Area (VTI): 1.16 cm2, 0.78 cm2 Deceleration Bay: 1.28 m/s2 Pressure Half-Time: 915.54 ms Peak Velocity(Antegrade Flow): 2.72 m/s, 1.42 m/s Peak Gradient(Antegrade Flow): 29.49 mm[Hg], 8.09 mm[Hg] Mean Velocity(Antegrade Flow): 2.16 m/s, 1.00 m/s Mean Gradient(Antegrade Flow): 20.26 mm[Hg], 4.57 mm[Hg] Velocity Time Integral: 94.93 cm, 32.41 cm Tricuspid Valve Peak Velocity (Regurgitant Flow): 3.03 m/s, 2.75 m/s Peak Velocity: 0.53 m/s Pulmonic Valve Mean Gradient: 3.12 mm[Hg] Mean Velocity: 0.83 m/s Peak Velocity: 1.21 m/s, 0.69 m/s Peak Gradient: 1.89 mm[Hg], 5.90 mm[Hg] Right Atrium Right Atrium Systolic Pressure: 105.25 ml, 82.66 ml, 127.85 ml Dictated by: Melissa Pina M.D. on 12/02/2022 at 17:57 Approved by: Melissa Pina M.D. on 12/02/2022 at 18:07 Normal [facility] PROF 14(COMP METB)on 023 Albumin [Mass/Vol] 3.9 g/dL Normal 3.4-5.0 [facility] Comment on above: Performed By: #### B PEARLER, CMP #### [facility] [address] [place] [address] Dr. Kaitlynn Joseph Albumin/Globulin [Mass ratio] 1.1 {ratio} Normal [facility] Comment on above: Performed By: #### B PEARLER, CMP #### [facility] [address] [place] [address] Dr. Kaitlynn Joseph ALP [Catalytic activity/Vol] 63 U/L Normal 46-[address] [facility] Comment on above: Performed By: #### B PEARLER, CMP #### [facility] [address] [place] [address] Dr. Kaitlynn Joseph ALT [Catalytic activity/Vol] 22 U/L Normal 14-[address] [facility] Comment on above: Performed By: #### B PEARLER, CMP #### [facility] [address] [place] [address] Dr. Kaitlynn Joseph Anion gap [Moles/Vol] 12.2 mmol/L Normal [facility] Comment on above: Performed By: #### B PEARLER, CMP #### [facility] [address] [place] [address] Dr. Kaitlynn Joseph AST [Catalytic activity/Vol] 17 U/L Normal 15-37 [facility] Comment on above: Performed By: #### B PEARLER, CMP #### [facility] [address] [place] [address] Dr. Kaitlynn Joseph Bilirubin [Mass/Vol] 0.4 mg/dL Normal 0.2-1.0 [facility] Comment on above: Performed By: #### B PEARLER, CMP #### [facility] [address] [place] [address] Dr. Kaitlynn Joseph Calcium [Mass/Vol] 9.4 mg/dL Normal 8.5-10.[address] [facility] Comment on above: Performed By: #### B PEARLER, CMP #### [facility] [address] [place] [address] Dr. Kaitlynn Joseph Chloride [Moles/Vol] 103 mmol/L Normal 98-[address] [facility] Comment on above: Performed By: #### B PEARLER, CMP #### [facility] [address] [place] [address] Dr. Kaitlynn Joseph CO2 [Moles/Vol] 32.0 mmol/L Normal 21.0-32.0 [facility] Comment on above: Performed By: #### B PEARLER, CMP #### [facility] [address] [place] [address] Dr. Kaitlynn Joseph Creatinine [Mass/Vol] 0.86 mg/dL Normal 0.55-1.02 [facility] Comment on above: Performed By: #### B PEARLER, CMP #### [facility] [address] [place] [address] Dr. Kaitlynn Joseph EGFR-AF MALAGASY >60 Normal >=60 [facility] Comment on above: Performed By: #### B PEARLER, CMP #### [facility] [address] [address] [address] Kaitlynn Joseph EGFR-NON AF MALAGASY >60 Normal >=60 [facility] Comment on above: Performed By: #### B PEARLER, CMP #### [facility] [address] [place] [address] Dr. Kaitlynn Joseph Globulin (S) [Mass/Vol] 3.7 g/dL Normal [facility] Comment on above: Performed By: #### B PEARLER, CMP #### [facility] [address] [place] [address] Dr. Kaitlynn Joseph Glucose [Mass/Vol] 101 mg/dL Normal 74-[address] [facility] Comment on above: Performed By: #### B PEARLER, CMP #### [facility] [address] [place] [address] Dr. Kaitlynn Joseph Potassium [Moles/Vol] 4.2 mmol/L Normal 3.5-5.[address] [facility] Comment on above: Performed By: #### B PEARLER, CMP #### [facility] [address] [place] [address] Dr. Kaitlynn Joseph Protein [Mass/Vol] 7.6 g/dL Normal 6.4-8.[address] [facility] Comment on above: Performed By: #### B PEARLER, CMP #### [facility] [address] [place] [address] Dr. Kaitlynn Joseph Sodium [Moles/Vol] 143 mmol/L Normal 136-[address] [facility] Comment on above: Performed By: #### B PEARLER, CMP #### [facility] [address] [place] [address] Dr. Kaitlynn Joseph Urea nitrogen [Mass/Vol] 21.0 mg/dL Critically high 7.0-18.0 [facility] Comment on above: Performed By: #### B PEARLER, CMP #### [facility] [address] [place] [address] Dr. Kaitlynn Joseph Urea nitrogen/Creatini ne [Mass ratio] 24.4 mg/mg Normal [facility] Comment on above: Performed By: #### B PEARLER, CMP #### [facility] [address] [address] [address] Kaitlynn Joseph Office Visiton 11-17-2022 Follow-up visit [id number] Amalia Bennett L 1940 F Date Provider Department Center 11/17/2022 MELISSA CAMPOS [facility] Family History Problem Relation Age of Onset Asthma Other Cancer Other Family Status - Relation Status Age at Other Level of Service:37722 SC OFFICE/OUTPATIENT ESTABLISHED MOD MDM 30-39 MIN Reason for Visit and Comments: Hypertension [198329] Valve Disorder [3372] Pulmonary Hypertension [818] diastolic dysfunction [Other] Normal [facility] Orders Onlyon 09-30-2022 Orders Only [id number] Amalia Bennett L 1940 F Date Provider Department Center 09/30/2022 EDWARD VINSON [facility] No family history on file Normal [facility] CBC AUTO DIFFon 02-19-2022 BASO # 0.0 103/ul Normal 0.0-0.1 [facility] Comment on above: Performed By: #### C BC #### [facility] [address] [place] [address] Dr. Kaitlynn Joseph Basophils/100 WBC (Bld) 0.5 % Normal 0.2-2.0 [facility] Comment on above: Performed By: #### C BC #### [facility] [address] [place] [address] Dr. Kaitlynn Joseph EO # 0.1 103/ul Normal 0.0-0.7 [facility] Comment on above: Performed By: #### C BC #### [facility] [address] [place] [address] Dr. Kaitlynn Joseph Eosinophils/100 WBC (Bld) 2.1 % Normal 0.9-7.0 [facility] Comment on above: Performed By: #### C BC #### [facility] [address] [place] [address] Dr. Kaitlynn Joseph Erythrocyte distribution width (RBC) [Ratio] 14.5 % Normal 11.0-15.0 [facility] Comment on above: Performed By: #### C BC #### [facility] [address] [place] [address] Dr. Kaitlynn Joseph Hematocrit (Bld) [Volume fraction] 42.0 % Normal 36.0-48.0 [facility] Comment on above: Performed By: #### C BC #### [facility] [address] [place] [address] Dr. Kaitlynn Joseph Hemoglobin (Bld) [Mass/Vol] 13.4 g/dL Normal 12.0-16.0 [facility] Comment on above: Performed By: #### C BC #### [facility] [address] [place] [address] Dr. Kaitlynn Joseph IG # 0.02 10e3/ul Normal 0.00-0.03 [facility] Comment on above: Performed By: #### C BC #### [facility] [address] [place] [address] Dr. Kaitlynn Joseph IG % 0.3 % Normal 0.0-0.5 [facility] Comment on above: Performed By: #### C BC #### [facility] [address] [place] [address] Dr. Kaitlynn Joseph LYMPH # 1.5 103/ul Normal 1.2-3.8 [facility] Comment on above: Performed By: #### C BC #### [facility] [address] [place] [address] Dr. Kaitlynn Joseph Lymphocytes/100 WBC (Bld) 25.0 % Normal 20.5-60.0 [facility] Comment on above: Performed By: #### C BC #### [facility] [address] [place] [address] Dr. Kaitlynn Joseph MANUAL DIFF REQ NO Normal [facility] Comment on above: Performed By: #### C BC #### [facility] [address] [address] [address] Kaitlynn Joseph MCH (RBC) [Entitic mass] 28.4 pg Normal 26.7-34.0 [facility] Comment on above: Performed By: #### C BC #### [facility] [address] [place] [address] Dr. Kaitlynn Joseph MCHC (RBC) [Mass/Vol] 31.9 g/dL Normal 29.9-35.2 [facility] Comment on above: Performed By: #### C BC #### [facility] [address] [place] [address] Dr. Kaitlynn Joseph MCV (RBC) [Entitic vol] 89.0 fL Normal 81.0-99.0 [facility] Comment on above: Performed By: #### C BC #### [facility] [address] [place] [address] Dr. Kaitlynn Joseph MONO # 0.7 103/ul Normal 0.3-0.8 [facility] Comment on above: Performed By: #### C BC #### [facility] [address] [place] [address] Dr. Kaitlynn Joseph Monocytes/100 WBC (Bld) 11.4 % Normal 1.7-12.0 [facility] Comment on above: Performed By: #### C BC #### [facility] [address] [place] [address] Dr. Kaitlynn Joseph NEUT # 3.7 103/ul Normal 1.4-6.5 [facility] Comment on above: Performed By: #### C BC #### [facility] [address] [place] [address] Dr. Kaitlynn Joseph Neutrophils/100 WBC (Bld) 60.7 % Normal 43.0-75.[address] [facility] Comment on above: Performed By: #### C BC #### [facility] [address] [place] [address] Dr. Kaitlynn Joseph Platelet mean volume (Bld) [Entitic vol] 10.8 fL Normal 9.5-13.5 [facility] Comment on above: Performed By: #### C BC #### [facility] [address] [place] [address] Dr. Kaitlynn Joseph PLT 272 103/ul Normal 150-[address] [facility] Comment on above: Performed By: #### C BC #### [facility] [address] [place] [address] Dr. Kaitlynn Joseph RBC 4.72 106/ul Normal 4.20-5.[address] [facility] Comment on above: Performed By: #### C BC #### [facility] [address] [place] [address] Dr. Kaitlynn Joseph WBC 6.2 103/ul Normal 4.0-11.0 [facility] Comment on above: Performed By: #### C BC #### [facility] [address] [place] [address] Dr. Kaitlynn Joseph PROF CHEM 8 (BAS METB)on Anion gap [Moles/Vol] 12.4 mmol/L Normal [facility] Comment on above: Performed By: #### B MP #### [facility] [address] [place] [address] Dr. Kaitlynn Joseph Calcium [Mass/Vol] 9.0 mg/dL Normal 8.5-10.[address] [facility] Comment on above: Performed By: #### B MP #### [facility] [address] [place] [address] Dr. Kaitlynn Joseph Chloride [Moles/Vol] 103 mmol/L Normal 98-[address] [facility] Comment on above: Performed By: #### B MP #### [facility] [address] [place] [address] Dr. Kaitlynn Joseph CO2 [Moles/Vol] 28.9 mmol/L Normal 21.0-32.0 [facility] Comment on above: Performed By: #### B MP #### [facility] [address] [place] [address] Dr. Kaitlynn Joseph Creatinine [Mass/Vol] 0.93 mg/dL Normal 0.55-1.02 [facility] Comment on above: Performed By: #### B MP #### [facility] [address] [address] [address] Kaitlynn Joseph EGFR-AF MALAGASY >60 Normal >=60 [facility] Comment on above: Performed By: #### B MP #### [facility] [address] [address] [address] Kaitlynn Joseph EGFR-NON AF MALAGASY 58 mL/min/1.73m2 Critically low >=60 [facility] Comment on above: Performed By: #### B MP #### [facility] [address] [address] [address] Kaitlynn Joseph Glucose [Mass/Vol] 105 mg/dL Normal 74-106 [facility] Comment on above: Performed By: #### B MP #### [facility] [address] [address] [address] Kaitlynn Joseph Potassium [Moles/Vol] 4.3 mmol/L Normal 3.5-5.1 [facility] Comment on above: Performed By: #### B MP #### [facility] [address] [address] [address] Kaitlynn Joseph Sodium [Moles/Vol] 140 mmol/L Normal 136-145 [facility] Comment on above: Performed By: #### B MP #### [facility] [address] [address] [address] Kaitlynn Joseph Urea nitrogen [Mass/Vol] 21.0 mg/dL Critically high 7.0-18.0 [facility] Comment on above: Performed By: #### B MP #### [facility] [address] [address] [address] Kaitlynn Joseph Urea nitrogen/Creatini ne [Mass ratio] 22.6 mg/mg Normal [facility] Comment on above: Performed By: #### B MP #### [facility] [address] [address] [address] Kaitlynn Joseph Encounters Encounter Date Encounter Type Care Provider Facility Start: 12-16-2023 End: 12-17-2023 ambulatory Jessie White Facility:[facility] Masha villar Start: 12-02-2023 End: 12-03-2023 ambulatory Jessie L Cindy Facility:[facility] Masha trane Start: 08-06-2023 End: 08-07-2023 ambulatory Jessie L Cindy Facility:[facility] Start: 07-24-2023 End: 07-24-2023 ambulatory [facility] Start: 04-24-2023 ambulatory Jessie Cindy Facility:[facility] Start: 01-02-2023 End: 01-03-[address] MELISSA PINA Facility: Start: 12-22-2022 End: 12-22-2022 ambulatory [facility] Start: 11-26-2022 End: 11-27-[address] MELISSA PINA Facility:[facility] Start: 11-17-2022 End: 11-17-2022 ambulatory [facility] Start: 02-19-2022 End: 02-20-[address] MELISSA PINA Facility: Start: 02-08-2019 End: 02-09-2019 Patient encounter procedure DEFAULT PHYSICIAN Facility:[facility] Payers Date Payer Category Payer Medicare [id number] 1940 Unknown [id number] [id number] 1940 Unknown [id number] 2.16.84 [id number] 1940 Unknown [id number] 2.16.84 [id number] 1940 Unknown [id number] 2.16.84 [id number] 1940 Unknown [id number] 2.16.8 [id number] 1940 Unknown [id number] 2.16.8 [id number] 1940 Unknown [id number] 2.16.8 [id number] 1940 Unknown [id number] 2.16.8 [id number] Unknown Progress note 07-24-2023 Note Date & Type Note Facility 07-24-2023 Note [facility] Subjective Gisel Bennett is a 83 y.o. year old female patient being seen for Follow-up Patient Active Problem List Diagnosis Benign essential hypertension Chest pain Chronic obstructive lung disease (CMS/HCC) Diaphragmatic hernia Osteoporosis Palpitations Tricuspid valve regurgitation Vaginal wall prolapse Extrinsic asthma History of ovarian cancer Nonrheumatic tricuspid valve disorder Paraesophageal hernia Family History Problem Relation Name Age of Onset Asthma Other Cancer Other Social History Tobacco Use Smoking status: Never Smokeless tobacco: Never Substance Use Topics Alcohol use: Not Currently Drug use: Never HPI She is a 83 yo woman with prior history of: Tricuspid regurgitation - severe COPD HTN Hx of hiatal hernia - surgery at [facility] in 2015. She had a normal coronary angiogram in 2015. She had an ultrasound of the lower extremity veins in June 2020 that showed a thrombus in the small saphenous vein but no DVT. Her aspirin was increased to 325 mg daily. She is currently back to 81 mg daily At visit of 06/20/2020 and due to worsening shortness of breath and echocardiogram showing elevated RVSP, I added Lasix 20 mg every other day. At visit of 02/13/2021 I increased furosemide to 20 mg daily and metoprolol tartrate to 25 mg twice daily. Previously her PCP reduced metoprolol tartrate to 25 mg once daily likely due to low blood pressure or heart rate. At visit of 02/19/2022 I changed it to 12.5 mg twice daily. Today she is seen in follow-up. She reports that she continues to have shortness of breath on exertion, NYHA class II. No significant lower extremity swelling. She reports palpitations occasionally. No significant chest pain. Review of Systems Constitutional: Positive for malaise/fatigue. Respiratory: Positive for shortness of breath. Neurological: Positive for dizziness. Objective Visit Vitals BP 110/67 Pulse 65 Ht 1.575 m (5' 2 ) Wt 62.8 kg (138 lb 6.4 oz) SpO2 94% BMI 25.31 kg/m??? Smoking Status Never BSA 1.66 m??? Physical Exam Constitutional: Appearance: She is well-developed. She is not ill-appearing. HENT: Head: Normocephalic and atraumatic. Nose: Nose normal. Eyes: General: No scleral icterus. Pupils: Pupils are equal, round, and reactive to light. Neck: Thyroid: No thyromegaly. Vascular: No JVD. Cardiovascular: Rate and Rhythm: Normal rate and regular rhythm. Pulses: Radial pulses are 2+ on the right side and 2+ on the left side. Heart sounds: Murmur heard. Systolic (LLSB) murmur is present with a grade of 3/6. No friction rub. No gallop. Pulmonary: Effort: Pulmonary effort is normal. No respiratory distress. Breath sounds: Normal breath sounds. No wheezing or rales. Chest: Chest wall: No tenderness. Abdominal: General: Bowel sounds are normal. There is no distension. Palpations: Abdomen is soft. Tenderness: There is no abdominal tenderness. Musculoskeletal: General: No swelling. Cervical back: Neck supple. Right lower le+ Pitting Edema present. Left lower le+ Pitting Edema present. Skin: General: Skin is warm and dry. Neurological: General: No focal deficit present. Mental Status: She is alert and oriented to person, place, and time. Psychiatric: Mood and Affect: Mood normal. Behavior: Behavior is cooperative. Judgment: Judgment normal. Allergies No Known Allergies Medications Current Outpatient Medications: alendronate (Fosamax) 35 mg tablet, Take 1 tablet by mouth 1 (one) time per week., Disp: , Rfl: amLODIPine (Norvasc) 5 mg tablet, Take 1 tablet (5 mg) by mouth in the morning., Disp: 90 tablet, Rfl: 3 aspirin 81 mg chewable tablet, Chew 1 tablet every day by oral route., Disp: , Rfl: calcium carbonate-vitamin D3 500 mg-5 mcg (200 unit) tablet, Take 1 tablet by mouth in the morning., Disp: , Rfl: furosemide (Lasix) 20 mg tablet, Take 1 tablet (20 mg) by mouth in the morning., Disp: 90 tablet, Rfl: 3 metoprolol tartrate (Lopressor) 25 mg tablet, Take 0.5 tablets (12.5 mg) by mouth in the morning and at bedtime., Disp: 90 tablet, Rfl: 3 mometasone-formoterol (Dulera 100) 100-5 mcg/actuation inhaler, Inhale 1 inhalation twice a day by inhalation route for 60 days., Disp: , Rfl: montelukast (Singulair) 10 mg tablet, Take 1 tablet by mouth in the morning., Disp: , Rfl: pantoprazole (ProtoNix) 40 mg EC tablet, Take 1 tablet (40 mg) by mouth in the morning and at bedtime., Disp: 180 tablet, Rfl: 3 albuterol sulfate 90 mcg/actuation aerosol powdr breath activated, Inhale by inhalation route., Disp: , Rfl: cholecalciferol (Vitamin D-3) 25 MCG (1000 UT) capsule, Take 2 capsules every day by oral route., Disp: , Rfl: fluticasone propion-salmeteroL (Advair Diskus) 100-50 mcg/dose diskus inhaler, Inhale 1 puff in the morning and at bedtime., Disp: , Rfl: LYCOPENE ORAL, Take 1 (more content not included)... [facility] Progress note 12-22-2022 Note Date & Type Note Facility 12-22-2022 Note [facility] Subjective Gisel Bennett is a 82 y.o. year old female patient being seen for follow up echo and labs. Still has the intermittent chest pain. No change in symptoms. Patient Active Problem List Diagnosis Benign essential hypertension Chest pain Chronic obstructive lung disease (CMS/HCC) Diaphragmatic hernia Osteoporosis Palpitations Tricuspid valve regurgitation Vaginal wall prolapse Family History Problem Relation Name Age of Onset Asthma Other Cancer Other Social History Tobacco Use Smoking status: Never Smokeless tobacco: Never Substance Use Topics Alcohol use: Not Currently Gisel is seen in follow up. She is a 82 yo woman with prior history of: Tricuspid regurgitation - severe COPD HTN Hx of hiatal hernia - surgery at [facility] in 2015. She had a normal coronary angiogram in 2015. She had an ultrasound of the lower extremity veins in June 2020 that showed a thrombus in the small saphenous vein but no DVT. Her aspirin was increased to 325 mg daily. She is currently back to 81 mg daily At visit of 06/20/2020 and due to worsening shortness of breath and echocardiogram showing elevated RVSP, I added Lasix 20 mg every other day. At visit of 02/13/2021 I increased furosemide to 20 mg daily and metoprolol tartrate to 25 mg twice daily. Previously her PCP reduced metoprolol tartrate to 25 mg once daily likely due to low blood pressure or heart rate. At visit of 02/19/2022 I changed it to 12.5 mg twice daily. Today she is seen in follow-up on testing from last visit of . She reports that she continues to have shortness of breath on exertion, NYHA class II-III. No significant lower extremity swelling. She reports palpitations occasionally. No significant chest pain except for some twinges here and there. Congestive Heart Failure Associated symptoms include chest pain and palpitations. Hypertension Associated symptoms include chest pain, malaise/fatigue and palpitations. Review of Systems Constitutional: Positive for malaise/fatigue. Cardiovascular: Positive for chest pain, dyspnea on exertion and palpitations. Musculoskeletal: Positive for arthritis, back pain and joint pain. Neurological: Positive for light-headedness. All other systems reviewed and are negative. Objective Visit Vitals BP 128/78 (BP Location: Right arm, Patient Position: Sitting) Pulse 91 Ht 1.575 m (5' 2 ) Wt 64 kg (141 lb) SpO2 97% BMI 25.79 kg/m??? Smoking Status Never BSA 1.67 m??? Physical Exam Constitutional: Appearance: She is well-developed. She is not ill-appearing. HENT: Head: Normocephalic and atraumatic. Nose: Nose normal. Eyes: General: No scleral icterus. Pupils: Pupils are equal, round, and reactive to light. Neck: Thyroid: No thyromegaly. Vascular: No JVD. Cardiovascular: Rate and Rhythm: Normal rate and regular rhythm. Pulses: Radial pulses are 2+ on the right side and 2+ on the left side. Heart sounds: Murmur heard. Systolic (LLSB) murmur is present with a grade of 3/6. No friction rub. No gallop. Pulmonary: Effort: Pulmonary effort is normal. No respiratory distress. Breath sounds: Normal breath sounds. No wheezing or rales. Chest: Chest wall: No tenderness. Abdominal: General: Bowel sounds are normal. There is no distension. Palpations: Abdomen is soft. Tenderness: There is no abdominal tenderness. Musculoskeletal: General: No swelling. Cervical back: Neck supple. Right lower le+ Pitting Edema present. Left lower le+ Pitting Edema present. Skin: General: Skin is warm and dry. Neurological: General: No focal deficit present. Mental Status: She is alert and oriented to person, place, and time. Psychiatric: Mood and Affect: Mood normal. Behavior: Behavior is cooperative. Judgment: Judgment normal. Allergies No Known Allergies Medications Current Outpatient Medications: alendronate (Fosamax) 35 mg tablet, Take 1 tablet by mouth 1 (one) time per week., Disp: , Rfl: amLODIPine (Norvasc) 5 mg tablet, Take 1 tablet (5 mg) by mouth in the morning., Disp: 90 tablet, Rfl: 3 aspirin 81 mg chewable tablet, Chew 1 tablet every day by oral route., Disp: , Rfl: cholecalciferol (Vitamin D-3) 25 MCG (1000 UT) capsule, Take 2 capsules every day by oral route., Disp: , Rfl: furosemide (Lasix) 20 mg tablet, Take 1 tablet (20 mg) by mouth in the morning., Disp: 90 tablet, Rfl: 3 metoprolol tartrate (Lopressor) 25 mg tablet, Take 0.5 tablets (12.5 mg) by mouth in the morning and at bedtime., Disp: 90 tablet, Rfl: 3 mometasone-formoterol (Dulera 100) 100-5 mcg/actuation inhaler, Inhale 1 inhalation twice a day by inhalation route for 60 days., Disp: , Rfl: montelukast (Singulair) 10 mg tablet, Take 1 tablet by mouth in the morning., Disp: , Rfl: pantoprazole (ProtoNix) 40 mg EC tablet, Take 1 tablet (40 mg) by mouth in the morn (more content not included)... [facility] Progress note 11-17-2022 Note Date & Type Note Facility 11-17-2022 Note [facility] Subjective Gisel Bennett is a 82 y.o. year old female patient being seen for Hypertension, Valve Disorder, Pulmonary Hypertension, and diastolic dysfunction Patient c/o dyspnea on exertion, and a little bit of chest pain. Denies LE edema, but does feel palpitations and lightheadedness a little bit . Last echo was done in 2019. No recent labs. Patient Active Problem List Diagnosis Benign essential hypertension Chest pain Chronic obstructive lung disease (CMS/HCC) Diaphragmatic hernia Osteoporosis Palpitations Tricuspid valve regurgitation Vaginal wall prolapse Family History Problem Relation Name Age of Onset Asthma Other Cancer Other Social History Tobacco Use Smoking status: Never Smokeless tobacco: Never Substance Use Topics Alcohol use: Not Currently HPI Gisel is seen in follow up. She is a 82 yo woman with prior history of: Tricuspid regurgitation - severe COPD HTN Hx of hiatal hernia - surgery at [facility] in 2015. She had a normal coronary angiogram in 2015. She had an ultrasound of the lower extremity veins in June 2020 that showed a thrombus in the small saphenous vein but no DVT. Her aspirin was increased to 325 mg daily. She is currently back to 81 mg daily At visit of 06/20/2020 and due to worsening shortness of breath and echocardiogram showing elevated RVSP, I added Lasix 20 mg every other day. At visit of 02/13/2021 I increased furosemide to 20 mg daily and metoprolol tartrate to 25 mg twice daily. Previously her PCP reduced metoprolol tartrate to 25 mg once daily likely due to low blood pressure or heart rate. At visit of 02/19/2022 I changed it to 12.5 mg twice daily. Today she reports that she has been having shortness of breath on exertion, NYHA class II-III. No significant lower extremity swelling. No palpitations. No significant chest pain except for some twinges here and there. Review of Systems Constitutional: Positive for malaise/fatigue. Cardiovascular: Positive for chest pain, dyspnea on exertion and palpitations. Musculoskeletal: Positive for arthritis, back pain and joint pain. Neurological: Positive for light-headedness. Objective Visit Vitals BP 113/70 (BP Location: Left arm, Patient Position: Sitting) Pulse 65 Ht 1.575 m (5' 2 ) Wt 62.6 kg (138 lb) SpO2 97% BMI 25.24 kg/m??? Smoking Status Never BSA 1.65 m??? Physical Exam Constitutional: Appearance: She is well-developed. She is not ill-appearing. HENT: Head: Normocephalic and atraumatic. Nose: Nose normal. Eyes: General: No scleral icterus. Pupils: Pupils are equal, round, and reactive to light. Neck: Thyroid: No thyromegaly. Vascular: No JVD. Cardiovascular: Rate and Rhythm: Normal rate and regular rhythm. Pulses: Radial pulses are 2+ on the right side and 2+ on the left side. Heart sounds: Murmur heard. Systolic (LLSB) murmur is present with a grade of 3/6. No friction rub. No gallop. Pulmonary: Effort: Pulmonary effort is normal. No respiratory distress. Breath sounds: Normal breath sounds. No wheezing or rales. Chest: Chest wall: No tenderness. Abdominal: General: Bowel sounds are normal. There is no distension. Palpations: Abdomen is soft. Tenderness: There is no abdominal tenderness. Musculoskeletal: General: No swelling. Cervical back: Neck supple. Skin: General: Skin is warm and dry. Neurological: General: No focal deficit present. Mental Status: She is alert and oriented to person, place, and time. Psychiatric: Mood and Affect: Mood normal. Behavior: Behavior is cooperative. Judgment: Judgment normal. Allergies No Known Allergies Medications Current Outpatient Medications: alendronate (Fosamax) 35 mg tablet, Take 1 tablet by mouth 1 (one) time per week., Disp: , Rfl: amLODIPine (Norvasc) 5 mg tablet, Take 1 tablet (5 mg) by mouth in the morning., Disp: 90 tablet, Rfl: 3 aspirin 81 mg chewable tablet, Chew 1 tablet every day by oral route., Disp: , Rfl: cholecalciferol (Vitamin D-3) 25 MCG (1000 UT) capsule, Take 2 capsules every day by oral route., Disp: , Rfl: furosemide (Lasix) 20 mg tablet, Take 1 tablet (20 mg) by mouth in the morning., Disp: 90 tablet, Rfl: 3 mometasone-formoterol (Dulera 100) 100-5 mcg/actuation inhaler, Inhale 1 inhalation twice a day by inhalation route for 60 days., Disp: , Rfl: montelukast (Singulair) 10 mg tablet, Take 1 tablet by mouth in the morning., Disp: , Rfl: pantoprazole (ProtoNix) 40 mg EC tablet, Take 1 tablet (40 mg) by mouth in the morning and at bedtime., Disp: 180 tablet, Rfl: 3 raNITIdine (Zantac) 150 mg tablet, Take 1 tablet every day by oral route for 30 days., Disp: , Rfl: metoprolol tartrate (Lopressor) 25 mg tablet, Take 0.5 tablets (12.5 mg) by mouth in the morning and at bedtime., Disp: 90 tablet, Rfl: 3 Recent Labs No visits with results within 6 Month(s) from this (more content not included)... [facility] Purpose Family History No Family History Records FoundNo Family History Records FoundNo Family History Records FoundNo Family History Records Found Advance Directives No Advanced Directives Records FoundNo Advanced Directives Records FoundNo Advanced Directives Records FoundNo Advanced Directives Records Found Additional Source Comments INFORMATION SOURCE (unrecogn ized section and content) DATE CREATED AUTHOR 02/14/2019 [facility] DATE CREATED AUTHOR AUTHOR'S ORGANIZ ATION 01/10/2023 [facility] DATE CREATED AUTHOR AUTHOR'S ORGANIZ ATION 07/26/2023 [facility] DATE CREATED AUTHOR AUTHOR'S ORGANIZ ATION 12/17/2023 [facility] FOR RECORDS PERTAINING TO PATIENTS WHO ARE OR HAVE BEEN ENROLLED IN A CHEMICAL DEPENDENCY/SUBSTANCEABUSE PROGRAM, SOME INFORMATION MAY BE OMITTED. This clinical summary was aggregated from multiple sources. Caution should be exercised in using it in the provision of clinical care. This summary normalizes information from multiple sources, and as a consequence, information in this document may materially change the coding, format and clinical context of patient data. In addition, data may be omitted in some cases. CLINICAL DECISIONS SHOULD BE BASED ON THE PRIMARY CLINICAL RECORDS. [facility]. provides no warranty or guarantee of the accuracy or completeness of information in this document.
--- NOTE | 2024-01-20 10:00 | CA_ITS ---
Patient Name: NOLAN CRAVEN MR#: [id number] : 1940 Exam Date: 01/20/2024 Ordering Doctor: DR MELISSA QUINONES M.D. ECHOCARDIOGRAM REPORT PROCEDURE: CA ECHO DOPPLER COMPLETE INDICATIONS: Nonrheumatic tricuspid valve regurgitation COMPARISON: None. DESCRIPTION: COMPLETE ECHOCARDIOGRAM Real-time transthoracic echocardiography with 2D, M-mode, spectral and color flow Doppler performed. QUALITY: Technical quality was good. 59 , 140#, BSA 1.58 m2, BP 128/72 LEFT VENTRICLE: Normal chamber size. Normal left ventricular wall thickness. Normal systolic function. LV EF: Normal left ventricular ejection fraction, (60%). DIASTOLIC: Grade II diastolic dysfunction. ATRIAL SEPTUM: Visually appears intact. LEFT ATRIUM: Mild dilatation. RIGHT ATRIUM: Severe dilatation. RIGHT VENTRICLE: Moderate dilatation. Normal right ventricular systolic function. TRICUSPID VALVE: Normal mobility and thickness. No stenosis with moderate regurgitation. Doppler studies reveal mildly (35-45) elevated right sided pressures. RVSP 44 mmHg MITRAL VALVE: Normal mobility and thickness. No evidence of mitral valve stenosis. There is no mitral annular calcification. Mild mitral regurgitation. AORTIC VALVE: Normal trileaflet appearance. Thickened aortic valve. Normal leaflet mobility. No evidence of aortic valve stenosis. Mild aortic regurgitation. AORTIC ROOT: Normal diameter and appearance. Ascending aorta is normal in size. PULMONIC VALVE: Normal thickness and mobility. No stenosis. Trivial regurgitation. PERICARDIUM: No evidence of pericardial effusion. IVC: Collapses with inspirations. IVC is normal in size. PLEURA: CONCLUSION: 1. Normal left systolic function. LVEF is 60%. 2. Moderately dilated right ventricle with normal systolic function. 3. Severe right atrial dilatation. 4. Moderate tricuspid regurgitation. 5. Mild aortic regurgitation. 6. Moderately elevated right-sided pressures. Adult Echocardiography Procedure Report Left Ventricle LVEDD (3.7 - 5.6 cm): 4.00 cm LVESD (2.2 - 4.0 cm): 2.48 cm LVIVS thickness (0.6 - 1.2 cm): 0.77 cm LVPW thickness (0.5 - 1.0 cm): 0.96 cm e': 0.07 m/s E - e': 8.35 LVOT Max Gradient: 3.98 mm[Hg] LVOT Area (cm2): 1.00 m/s Peak Velocity (LVOT): 1.00 m/s Mean Velocity (LVOT): 0.59 m/s LVOT Diameter 2.08 cm Left Atrium LA Volume Index (2D A2C): 38.79 ml/m2 Left Atrium Systolic Dimension: 3.68 cm Mitral Valve MV E to A Ratio: 0.71 Mitral Valve A-Wave Peak Velocity: 0.85 m/s Mitral Valve E-Wave Peak Velocity: 0.60 m/s Right Ventricle Aorta AO Root Diam: 2.76 cm Ascending Ao Diam: 2.73 cm Aortic Valve AoV Area (Peak Eamon): 2.66 cm2, 2.66 cm2 AoV Area (VTI): 2.68 cm2, 2.68 cm2 Peak Velocity(Antegrade Flow): 1.27 m/s Peak Gradient(Antegrade Flow): 6.42 mm[Hg] Mean Velocity(Antegrade Flow): 0.79 m/s Mean Gradient(Antegrade Flow): 2.99 mm[Hg] Velocity Time Integral: 26.22 cm Tricuspid Valve Peak Velocity (Regurgitant Flow): 3.11 m/s, 3.19 m/s, 2.52 m/s, 2.40 m/s Pulmonic Valve Mean Gradient: 1.26 mm[Hg] Mean Velocity: 0.51 m/s Peak Velocity: 0.73 m/s, 0.86 m/s Peak Gradient: 2.96 mm[Hg], 2.16 mm[Hg] Right Atrium Right Atrium Systolic Pressure: 84.58 ml, 84.58 ml Dictated by: Melissa Quinones M.D. on 01/20/2024 at 17:16 Approved by: Melissa Quinones M.D. on 01/20/2024 at 17:29
== END 2024-01-20 09:45 | disposition home or self-care (01) ==
LOC: CARD 09:45
PROVIDERS: PCP Family Medicine; Visit Provider Internal Medicine Interventional Cardiology
DX: I36.1 Nonrheumatic tricuspid (valve) insufficiency (principal)
CPT/HCPCS: 93306

== ENCOUNTER 2024-08-09 10:50 | Outpatient (OUT) | payer MEDICARE, SELFPAY ==
--- OUTSIDE RECORDS SUMMARY | 2024-08-09 10:53 | XMS_ITS | CCD ---
Author Organization 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 Name Role Phone PHYSICIAN, DEFAULT Admitting Unavailable PHYSICIAN, DEFAULT Attending Unavailable NORIEGACORINNE Primary Care Unavailable MOUKARBEL, DR TORRES Admitting [...] Attending Unavailable Cindy, Jessie Marvin Admitting Unavailable Cindy, Jessie Marvin Attending Unavailable Cindy, Jessie Marvin Attending Unavailable Cindy, Jessie Marvin Attending Unavailable Problems Active Problems Problem Classification Problem Date Documented Da te Episodic/Chronic Congestive heart failure; nonhypertensive (2 sources) Chronic diastolic (congestive) heart failure; Translations: [Chronic diastolic (congestive) heart failure] Onset: 07-24-2023 Chronic Essential hypertension (6 sources) Essential (primary) hypertension; Translations: [ESSENTIAL PRIMARY HYPERTENSION] Onset: 02-19-2022 Chronic Heart valve disorders (6 sources) Nonrheumatic tricuspid (valve) insufficiency; Translations: [NONRHEUMATIC TRICUSPID VALVE INSUFF] Onset: 07-29-2022 Chronic Other lower respiratory disease (4 sources) Shortness of breath; Translations: [SHORTNESS OF BREATH] Onset: 01-02-2023 Episodic Pulmonary heart disease (2 sources) Pulmonary hypertension due to left heart disease; Translations: [Pulmonary hypertension due to left heart disease] Onset: 07-24-2023 Chronic Past or Other Problems Problem Classification Problem Date Documented Da te Episodic/Chronic Other lower respiratory disease (3 sources) Other forms of dyspnea; Translations: [OTHER FORMS OF DYSPNEA] Onset: 12-01-2022 Episodic Results Test Name Value Interpretation Reference Range Facility [facility] Medicine Office/Clini c Noteon 04-08-2024 Family Medicine Office/Clinic Note [facility] Medicine Office/Clinic Note HPI Staff Gisel is a 84 year old female presenting for acute visit Onset: 5 days ago Pt has possible infection in her mouth she thinks, front lower gums hurts gums are red. Pain is intermittent. Pt does have a dental appointment in a week. History of Present Illness pt presents today with red tender gums Review of Systems PHQ Score Initial Depression Screen Score: 0 SCORE Physical Exam Vitals & Measurements T: 36.5 ?C(Oral) HR: 64(Peripheral) RR: 18 BP: 122/84 SpO2: 97% HT: 59 in HT: 151.0 cm WT: 62.0 kg WT: 136.4 lb BMI: 27.19 General: alert, no acute distress ENMT: oral mucosa moist, no pharyngeal erythema or exudate Cardiovascular: regular rate and rhythm, normal peripheral perfusion Respiratory: Lungs CTA, respirations non labored Extremities: no deformity, no trauma Neurological: oriented x 4, LOC appropriate for age, CN II-XII intact, motor strength equal & normal bilaterally, speech lower front gums red and inflamed Assessment/Plan 1. Gingivitis, acute (K05.00: Acute gingivitis, plaque induced) gum bottom front are red and inflamed. will order amoxicillin. pt has appointment with dentist next week. pt encouraged to get Listerine to rinse with. RTC as needed Ordered: amoxicillin, 500 mg = 1 cap(s), Oral, q12hr, # 14 cap(s), Refills(s) 0, Pharmacy: [facility], 151, cm, 04/08/24 11:38:00 EDT, Height/Length Dosing, 62, kg, 04/08/24 11:38:00 EDT, Weight Dosing 2. BMI 27.0-27.9,adult (Z68.27: Body mass index [BMI] 27.0-27.9, adult) BMI education given Ordered: amoxicillin, 500 mg = 1 cap(s), Oral, q12hr, # 14 cap(s), Refills(s) 0, Pharmacy: [facility], 151, cm, 04/08/24 11:38:00 EDT, Height/Length Dosing, 62, kg, 04/08/24 11:38:00 EDT, Weight Dosing 3. Non-smoker (Z78.9: Other specified health status) continue not smoking Ordered: amoxicillin, 500 mg = 1 cap(s), Oral, q12hr, # 14 cap(s), Refills(s) 0, Pharmacy: [facility], 151, cm, 04/08/24 11:38:00 EDT, Height/Length Dosing, 62, kg, 04/08/24 11:38:00 EDT, Weight Dosing Orders: formoterol-mometason e, 2 puff(s), Inhalation, BID, 13 gram, Refill(s) 11, rinse mouth and throat after use, [facility], 151, cm, 04/08/24 11:38:00 EDT, Height/Length Dosing, 62, kg, 04/08/24 11:38:00 EDT, Weight Dosing formoterol-mometason e, 2 puff(s), Inhalation, BID, 13 gram, Refill(s) 11, rinse mouth and throat after use, [facility], 151, cm, 08/06/23 8:53:00 EDT, Height/Length Dosing, 62.5, kg, 08/06/23 8:53:00 EDT, Weight Dosing Follow-up No qualifying data available Problem List/Past Medical History Ongoing Arthritis of right knee BMI 27.0-27.9,adult Essential hypertension Fatigue Gingivitis, acute Hip pain, bilateral Leg weakness, bilateral Low back pain Right knee pain Scoliosis Swelling of right knee joint Wellness examination Historical No qualifying data Procedure/Surgical History Cardiac catheter (2013), Hiatal hernia (2013), Colonoscopy (2011), Surgery, DARLENE BSO - Total abdominal hysterectomy and bilateral salpingo-oophorectom y. Medications Albuterol (Eqv-Ventolin HFA) 90 mcg/inh inhalation aerosol, 2 puff(s), Inhalation, q6hr alendronate 35 mg Tab, 35 mg= 1 tab(s), Oral, q7day, 3 refills amLODIPine 5 mg Tab, 5 mg= 1 tab(s), Oral, Daily amoxicillin 500 mg Cap, 500 mg= 1 cap(s), Oral, q12hr aspirin 81 mg Oral EC Tab, 81 [...] Smokeless Tobacco Use:. Household tobacco concerns: No., 04/08/2024 Family History Stroke: Mother and Sister. Immunizations Vaccine Date Status Comments influenza virus vaccine, inactivated 08/06/2023 Given SARS-CoV-2 (COVID-19) [id number].ORD![id number] 08/25/2022 Recorded 2023-11-30: [id number] influenza virus vaccine, inactivated 08/31/2021 Recorded SARS-CoV-2 (COVID-19) mRNA-1273 vaccine 08/07/2021 Recorded SARS-CoV-2 (COVID-19) mRNA-1273 vaccine 11/28/2020 Recorded SARS-CoV-2 (COVID-19) mRNA-1273 vaccine 10/25/2020 Recorded influenza virus vaccine, inactivated 08/13/2019 Recorded influenza virus vaccine, inactivated 08/25/2018 Recorded influenza virus vaccine, inactivated 07/30/2016 Recorded pneumococcal 23-valent vaccine 08/02/2014 Recorded pneumococcal 23-valent vaccine 08/05/2002 Recorded Normal [facility] Comment on above: Result Comment: Elec tronically Signed By: Jessie Ty\.br\Date and Time Signed: 04/08/24 12:39 EDT Office Visiton 02-05-2024 Follow-up visit [id number] Gisel Bennett 1940 F Date Provider [facility] Family History Problem Relation Age of Onset Asthma Other Cancer Other Family Status - Relation Status Age at Other Level of Service:[address] [place] OFFICE/OUTPATIENT ESTABLISHED MOD MDM 30 MIN Reason for Visit and Comments: Follow-up [421696] - 6 month-W/ echo Normal [facility] Echocardiographyon Echocardiography [id number] #1.00TIFF Normal [facility] Ambulatory Visit Summaryon 0 12-16-2023 Ambulatory Visit [...] EC Tab) celecoxib (celecoxib 200 mg Cap) formoterol-mometason e (Dulera 100 mcg-5 mcg/inh inhalation aerosol) furosemide (furosemide 20 mg Tab) metoprolol (Lopressor 25 mg oral tablet) montelukast (montelukast 10 mg Tab) pantoprazole (Pantoprazole [address] Tab) [Image Removed: STOP]Stop taking these medications gabapentin (gabapentin 300 mg Cap) Procedures Performed Cardiac catheter (2013), Hiatal hernia (2013), Colonoscopy (2011), Surgery, DARLENE BSO - Total abdominal hysterectomy and bilateral salpingo-oophorectom y. Discharge Vitals Heart Rate (Peripheral) 98 Respiratory [...] 27.0-27.9,adult Refills: 1 Pickup at [facility] Unchanged albuterol (Albuterol (Eqv-Ventolin HFA) 90 mcg/ [...] 1 Tablets By Mouth Every day Unchanged formoterol-mometason e (Dulera 100 mcg-5 mcg/ inh inhalation aerosol) [...] By Mouth Every day Pharmacy Information [facility]: [address], [place] [id number] [phone] What How Much When Why Comments Stop [...] you for choosing us for your care. Bernadette Sweeney [facility] Family Medicine Office/Clini c Noteon 12-16-2023 [...] Daily, # 90 cap(s), Refills(s) 1, Pharmacy: [facility], 151, cm, 12/16/23 15:40:00 EST, Height/Length Dosing, 63.4, kg, 12/16/23 15:40:00 EST, Weight Dosing celecoxib, 200 mg = 1 cap(s), Oral, Daily, # 30 cap(s), Refills(s) 0, Pharmacy: [facility], 151, cm, 12/02/23 15:29:00 EST, Height/Length Dosing, 140.4, kg, 12/02/23 15:29:00 EST, Weight Dosing 3. Scoliosis (M41.9: Scoliosis, unspecified) discussed s ray results. discussed referrral to ortho or pain management 4. BMI 27.0-27.9,adult (Z68.27: Body mass index [BMI] 27.0-27.9, adult) BMI education compelte Ordered: celecoxib, 200 mg = 1 cap(s), Oral, Daily, # 90 cap(s), Refills(s) 1, Pharmacy: [facility], 151, cm, 12/16/23 15:40:00 EST, Height/Length Dosing, 63.4, kg, 12/16/23 15:40:00 EST, Weight Dosing celecoxib, 200 mg = 1 cap(s), Oral, Daily, # 30 cap(s), Refills(s) 0, Pharmacy: [facility], 151, cm, 12/02/23 15:29:00 EST, Height/Length Dosing, 140.4, kg, 12/02/23 15:29:00 EST, Weight Dosing 5. Non-smoker (Z78.9: Other specified health status) continue not smoking Orders: montelukast, 10 mg = 1 tab(s), Oral, qPM, # 30 tab(s), Refills(s) 2, Pharmacy: [facility] Follow-up No qualifying data available Problem List/Past Medical History Ongoing Arthritis of right knee BMI 27.0-27.9,adult Essential hypertension Fatigue Hip pain, bilateral Leg weakness, bilateral Low back pain Right knee pain Scoliosis Swelling of right knee joint Wellness examination Historical No qualifying data Procedure/Surgical History Cardiac catheter (2013), Hiatal hernia (2013), Colonoscopy (2011), Surgery, DARLENE BSO - Total abdominal hysterectomy and bilateral salpingo-oophorectom y. Medications Albuterol (Eqv-Ventolin HFA) 90 mcg/inh inhalation [...] virus vaccine, inactivated 08/06/2023 Given SARS-CoV-2 (COVID-19) mRNAMUL.ORD![id number] 08/25/2022 Recorded 2023-11-30: [id number] influenza virus vaccine, inactivated 08/31/2021 Recorded SARS-CoV-2 (COVID-19) mRNA-1273 vaccine 08/07/2021 Recorded SARS-CoV-2 (COVID-19) mRNA-1273 vaccine 11/28/2020 Recorded SARS-CoV-2 (COVID-19) mRNA-1273 vaccine 10/25/2020 Recorded influenza virus vaccine, inactivated 08/13/2019 Recorded influenza virus vaccine, inactivated 08/25/2018 Recorded (more content not included)... Normal [facility] Comment on above: Result Comment: Elec tronically Signed By: Jessie Ty\.br\Date and Time Signed: 12/16/23 15:59 EST Physician Orderon 12-03-2023 Physician Order [id number] #1.00TIFF [facility] Ambulatory Visit Summaryon 0 12-02-2023 Ambulatory [...] aspirin (aspirin 81 mg Oral EC Tab) formoterol-mometason e (Dulera 100 mcg-5 mcg/inh inhalation aerosol) formoterol-mometason e (Dulera 100 mcg-5 mcg/inh inhalation aerosol) furosemide (furosemide 20 mg Tab) metoprolol (Lopressor 25 mg oral tablet) montelukast (montelukast 10 mg Tab) montelukast (montelukast 10 mg Tab) pantoprazole (Pantoprazole [address] Tab) Procedures Performed Cardiac catheter (2013), Hiatal hernia (2013), Colonoscopy (2011), Surgery, DARLENE BSO - Total abdominal hysterectomy and bilateral salpingo-oophorectom y. Discharge Vitals Heart Rate (Peripheral) 76 Blood Pressure 132/70 Height 151 cm Height 59 in Weight 63.68 kg Weight 140.096 lb BMI 27.93 What to do next Scheduled Follow-Up Appointments Thursday. 2023 3:40 PM EST With: Jessie Ty Where: [facility] [place] Normal [facility] Family Medicine Office/Clini c Noteon 12-02-2023 [...] 15:29:00 EST, Michelle (more content not included)... Normal [facility] Comment on above: Result Comment: Elec tronically Signed By: Jessie Ty\.br\Date and Time Signed: 12/02/23 17:02 EST Retail - Clinical Noteon Retail - Clinical Note [id number] #1.00TIFF Normal [facility] Ambulatory Visit Summaryon 1 Ambulatory Visit Summary GISEL BENNETT :1940 Visit Date:08/06/2023 Ambulatory Visit Instructions Your Diagnosis BMI 27.0-27.9,adult Non-smoker Wellness examination Your Care Team Attending Physician - Jessie Ty Primary Care Physician - Jessie Ty This Is Your Medications List alendronate (alendronate 35 mg Tab) amlodipine (amLODIPine 5 mg Tab) aspirin (aspirin 81 mg Oral EC Tab) formoterol-mometason e (Dulera 100 mcg-5 mcg/inh inhalation aerosol) furosemide (furosemide 20 mg Tab) metoprolol (Lopressor 25 mg oral tablet) montelukast (montelukast 10 mg Tab) pantoprazole (Pantoprazole [address] Tab) Procedures Performed Cardiac catheter (2013), Hiatal hernia (2013), Colonoscopy (2011), Surgery, DARLENE BSO - Total abdominal hysterectomy and bilateral salpingo-oophorectom y. Discharge Vitals Heart Rate (Peripheral) 62 Respiratory [...] 1 Tablets By Mouth Every day Unchanged formoterol-mometason e (Dulera 100 mcg-5 mcg/ inh inhalation aerosol) [...] for choosing us for your care. Normal [facility] Auto Diffon 08-06-2023 Basophils/100 WBC (Bld) 0.7 % Normal 0.0-2.0 [facility] Comment on above: Order Comment: Order Added by Discern Expert. Performed By: #### 1 8856559, 2072570, 3509377, 4227105, 4940016 ####[address] [place] [address] Basophils/Leukocytes Auto (Bld) [Pure # fraction] 0.0 E9/L Normal 0.0-0.2 [facility] Comment on above: Order Comment: Order Added by Discern Expert. Performed By: #### 1 9447327, 9097701, 4354364, 3103697, 2810623 ####[address] [place] [address] Eosinophils/100 WBC (Bld) 2.3 % Normal 0.0-8.0 [facility] Comment on above: Order Comment: Order Added by Discern Expert. Performed By: #### 1 0248857, 1866694, 8239693, 8963901, 2371767 ####[address] [address] Eosinophils/Leukocytes Auto (Bld) [Pure # fraction] 0.1 E9/L Normal 0.0-0.5 [facility] Comment on above: Order Comment: Order Added by Discern Expert. Performed By: #### 1 8662207, 9521835, 8696849, 6376061, 1937319 ####[address] [address] Lymphocytes/100 WBC (Bld) 21.4 % Normal 14.0-50.0 [facility] Comment on above: Order Comment: Order Added by Discern Expert. Performed By: #### 1 7743916, 2777338, 5014844, 8939566, 1804034 ####[address] [place] [address] Lymphocytes/Leukocytes Auto (Bld) [Pure # fraction] 1.1 E9/L Normal 1.0-4.0 [facility] Comment on above: Order Comment: Order Added by Discern Expert. Performed By: #### 1 5315294, 2070586, 5073944, 4662705, 7298339 ####[facility] [address] [place] [address] [place] [address] Monocytes/100 WBC (Bld) 12.2 % Normal 4.0-14.0 [facility] Comment on above: Order Comment: Order Added by Discern Expert. Performed By: #### 1 3306617, 7828648, 0431067, 7642359, 0584699 ####[address] [address] Monocytes/Leukocytes Auto (Bld) [Pure # fraction] 0.6 E9/L Normal 0.2-1.0 [facility] Comment on above: Order Comment: Order Added by Discern Expert. Performed By: #### 1 4932397, 8664676, 7366260, 3474255, 2166807 ####[address] [address] Neutrophils/100 WBC (Bld) 63.4 % Normal 36.0-75.0 [facility] Comment on above: Order Comment: Order Added by Discern Expert. Performed By: #### 1 3365190, 4338226, 0200638, 6261495, 1087157 ####[address] [address] Neutrophils/Leukocytes Auto (Bld) [Pure # fraction] 3.2 E9/L Normal 2.0-7.5 [facility] Comment on above: Order Comment: Order Added by Discern Expert. Performed By: #### 1 2286668, 3322078, 5840645, 9176185, 4835608 ####[address] [address] CBC w/ Auto Diffon 3 Erythrocyte distribution width (RBC) [Ratio] 15.4 % High 10.9-14.2 [facility] Comment on above: Performed By: #### 1 2056046, 2123323, 2559452, 9398438, 2896876 ####[address] [address] Hematocrit (Bld) [Volume fraction] 42.5 % Normal 34.0-46.0 [facility] Comment on above: Performed By: #### 1 6896513, 7986750, 0357775, 9902610, 0355829 ####[address] [place] [address] Hemoglobin (Bld) [Mass/Vol] 13.8 g/dL Normal 12.0-16.0 [facility] Comment on above: Performed By: #### 1 2823526, 3488197, 9294916, 5125071, 3317626 ####[address] MCH (RBC) [Entitic mass] 28.1 pg Normal 27.0-34.0 [facility] Comment on above: Performed By: #### 1 0797321, 7445912, 9787299, 6546262, 6949191 ####[address] [address] MCHC (RBC) [Mass/Vol] 32.4 g/dL Normal 31.4-36.0 [facility] Comment on above: Performed By: #### 1 5109369, 3431480, 9914056, 2964626, 1497450 ####[address] [address] MCV (RBC) [Entitic vol] 86.7 fL Normal 80.0-100.0 [facility] Comment on above: Performed By: #### 1 7173194, 4915678, 1495156, 8685853, 2422913 ####[address] [address] Platelet mean volume (Bld) [Entitic vol] 9.7 fL Normal 6.4-10.8 [facility] Comment on above: Performed By: #### 1 9148380, 3235046, 7862127, 3249453, 9483418 ####[address] [address] Platelets (Bld) [#/Vol] 286.0 E9/L Normal 150.0-500.0 [facility] Comment on above: Performed By: #### 1 6538491, 7029552, 5839987, 8876765, 5448002 ####[facility] [address] [place] [address] RBC (Bld) [#/Vol] 4.9 E12/L Normal 4.3-5.9 [facility] Comment on above: Performed By: #### 1 3495942, 2551785, 8760555, 3050710, 7139885 ####[address] [place] [address] WBC corrected for nucl RBC Auto (Bld) [#/Vol] 5.1 E9/L Normal 4.0-11.0 [facility] Comment on above: Performed By: #### 1 2549929, 8195691, 4508776, 7348773, 1397640 ####[address] [address] CMPon 08-06-2023 Albumin [Mass/Vol] 4.2 g/dL Normal 3.3-5.0 [facility] Comment on above: Performed By: #### 1 0814849, 5669935, 4146668, 6905665, 5451423 ####[address] [place] [address] Albumin/Globulin (S) [Mass conc ratio] 1.2 Normal 1.1-2.2 [facility] Comment on above: Performed By: #### 1 1466280, 8033606, 5142979, 2660017, 6774603 ####[address] [place] [address] ALP [Catalytic activity/Vol] 52 Int._Unit/L Normal 21-98 [facility] Comment on above: Performed By: #### 1 2036424, 3484537, 0728266, 5885623, 2959946 ####[address] [place] [address] ALT No additional P-5'-P [Catalytic activity/Vol] 15 Int._Unit/L Normal 6-46 [facility] Comment on above: Performed By: #### 1 7708909, 7793471, 1394858, 2727893, 1205428 ####[facility] [address] [place] [address] Anion gap [Moles/Vol] 6 mmol/L Normal 6-16 [facility] Comment on above: Performed By: #### 1 2624918, 1334573, 8112353, 1431436, 4490528 ####[facility] [address] [place] [address] AST [Catalytic activity/Vol] 19 Int._Unit/L Normal 5-43 [facility] Comment on above: Performed By: #### 1 4556165, 6657507, 9328050, 9298368, 7686314 ####[facility] [address] [place] [address] Bilirubin [Mass/Vol] 0.4 mg/dL Normal 0.0-1.1 [facility] Comment on above: Performed By: #### 1 1955553, 4490855, 8678626, 4210065, 7399958 ####[facility] [address] [place] [address] Calcium [Mass/Vol] 9.0 mg/dL Normal 8.9-11.1 [facility] Comment on above: Performed By: #### 1 9622637, 0535704, 7309786, 8513172, 5390594 ####[facility] [address] [place] [address] Chloride [Moles/Vol] 107 mmol/L Normal 101-111 [facility] Comment on above: Performed By: #### 1 8670394, 7121276, 6812488, 5562492, 5323018 ####[facility] [address] [place] [address] CO2 [Moles/Vol] 28 mmol/L Normal 21-31 [facility] Comment on above: Performed By: #### 1 9752392, 8322900, 8115944, 6250886, 7246660 ####[facility] [address] [place] [address] Creatinine [Mass/Vol] 1.0 mg/dL Normal 0.5-1.3 [facility] Comment on above: Performed By: #### 1 3394343, 4516947, 6580962, 9902137, 8906786 ####[facility] [address] [place] [address] Globulin (S) [Mass/Vol] 3.4 g/dL Normal 1.4-4.0 [facility] Comment on above: Performed By: #### 1 0309154, 6586084, 9419703, 0445987, 3275342 ####[facility] [address] [place] [address] Glucose [Mass/Vol] 101 mg/dL Normal 55-199 [facility] Comment on above: Result Comment: If t his glucose result represents a fasting glucose, interpretation should refer to the following reference range: 55-99 mg/dL Performed By: #### 1 3212339, 2924538, 2536545, 1567394, 0879190 ####[facility] [address] [place] [address] Potassium [Moles/Vol] 4.3 mmol/L Normal 3.5-5.3 [facility] Comment on above: Performed By: #### 1 2998155, 6025256, 2225434, 4731436, 3881580 ####[facility] [address] [place] [address] Protein [Mass/Vol] 7.6 g/dL Normal 6.0-7.8 [facility] Comment on above: Performed By: #### 1 8146476, 1766730, 3476065, 9229938, 9404891 ####[facility] [address] [place] [address] Sodium [Moles/Vol] 137 mmol/L Normal 135-145 [facility] Comment on above: Performed By: #### 1 5756234, 5992884, 9036651, 1027337, 2534069 ####[facility] [address] [place] [address] Urea nitrogen [Mass/Vol] 22 mg/dL High 5-21 [facility] Comment on above: Performed By: #### 1 0229836, 3508525, 4609089, 6858602, 0817960 ####[facility] [address] [place] [address] Urea nitrogen/Creatinine [Mass ratio] 22 No Units High 10-20 [facility] Comment on above: Performed By: #### 1 0802620, 9887922, 6902562, 8640042, 6169136 ####[facility] [address] [place] [address] Consent for Flu Vaccineon Consent for Flu Vaccine [id number] #1.00TIFF Normal [facility] Family Medicine Office/Clini c Noteon 08-06-2023 Family Medicine Office/Clinic Note HPI Staff Gisel is a 83 year old female presenting to [facility] Establish Care: History: Any previous diagnosis: osteoporosis, asthma, vitamin D deficiency History of seeing any specialist: 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 Right hip discomfort intermittent feels like hips coming out of socket. onset 1-2 months ago History of [facility] will need annual labs [...] Diff Comprehensive Metabolic Panel Lab Specimen Collect [id number] Lipid Panel 2. Essential hypertension (I10: Essential (primary) hypertension) BP at goal. will send refills on meds. will draw labs Ordered: CBC w/ Auto Diff Comprehensive Metabolic Panel Lab Specimen Collect [id number] Lipid Panel 3. Fatigue (R53.83: Other fatigue) will draw labs today Ordered: CBC w/ Auto Diff Comprehensive Metabolic Panel Lab Specimen Collect [id number] Lipid Panel 4. Non-smoker (Z78.9: Other specified [...] given in office Ordered: FIRST VACCINE w/o Digital Solution Architect Admin Charge [id number] Orders: alendronate, 35 mg = 1 tab(s), Oral, q7day, # 12 tab(s), Refills(s) 3, Pharmacy: [facility], 151, cm, 08/06/23 8:53:00 EDT, Height/Length Dosing, 62.5, kg, 08/06/23 8:53:00 EDT, Weight Dosing formoterol-mometason e, 2 puff(s), Inhalation, BID, 13 gram, Refill(s) 11, rinse mouth and throat after use, [facility], 151, cm, 08/06/23 8:53:00 EDT, Height/Length Dosing, 62.5, kg, 08/06/23 8:53:00 EDT, Weight Dosing montelukast, 10 mg = 1 tab(s), Oral, qPM, # 90 tab(s), Refills(s) 3, Pharmacy: [facility], 151, cm, 08/06/23 8:53:00 EDT, Height/Length Dosing, 62.5, kg, 08/06/23 8:53:00 EDT, Weight Dosing Follow-up No qualifying data available Problem List/Past Medical History Ongoing Essential hypertension Fatigue Wellness examination Historical No qualifying data Procedure/Surgical History Cardiac catheter (2013), Hiatal hernia (2013), Colonoscopy (2011), Surgery, DARLENE BSO - Total abdominal hysterectomy and bilateral salpingo-oophorectom y. Medications alendronate 35 mg Tab, 35 mg= [...] refills Pantoprazol (more content not included)... Normal [facility] Comment on above: Result Comment: Elec tronically Signed By: Jessie Ty\Date and Time Signed: 08/06/23 09:34 EDT Lipid Panelon 08-06-2023 Cholesterol [Mass/Vol] 283 mg/dL High 120-200 [facility] Comment on above: Performed By: #### 1 [id number], [id number], [id number], [id number], [id number] ####[facility] [address] [place] [address] Cholesterol in HDL [Mass/Vol] 60 mg/dL Invalid Interpretation Code [facility] Comment on above: Result Comment: HDL > or equal to 60 mg/dL: Low cardiovascular risk HDL < 40 mg/dL : High cardiovascular risk Performed By: #### 1 [id number], [id number], [id number], [id number], [id number] ####[facility] [address] [place] [address] Cholesterol in LDL [Mass/Vol] 204 mg/dL High <=129 [facility] Comment on above: Performed By: #### 1 [id number], [id number], [id number], [id number], [id number] ####[facility] [address] [place] [address] Cholesterol in VLDL [Mass/Vol] 18 mg/dL Normal 7-40 [facility] Comment on above: Performed By: #### 1 [id number], [id number], [id number], [id number], [id number] ####[facility] [address] [place] [address] Triglyceride [Mass/Vol] 92 mg/dL Normal <=149 [facility] Comment on above: Performed By: #### 1 [id number], [id number], [id number], [id number], [id number] ####[facility] [address] [place] [address] eGFRon 08-06-2023 GFR/1.73 sq M.predicted among non-blacks MDRD (S/P/Bld) [Vol rate/Area] 55 mL/min/1.73 m2 Low >=59 [facility] Comment on above: Order Comment: Order added by Discern Expert. Result Comment: Bag Loader ca kidney disease could be indicated at eGFR's of less than 60 mL/min/1.73m2. Kidney failure is indicated at less than 15 mL/min/1.73m2. Performed By: #### 1 [id number], [id number], [id number], [id number], [id number] ####[facility] [address] [place] [address] Lab Reportson 07-29-2023 Lab Reports [id number] Normal [facility] Office Visiton 07-24-2023 Follow-up visit [id number] Gisel Bennett 1940 F Date Provider Department Center 07/24/2023 MELISSA CAMPOS [facility] Family History Problem Relation Age of Onset Asthma Other Cancer Other Family Status - Relation Status Age at Other Level of Service:[address] [place] OFFICE/OUTPATIENT ESTABLISHED LOW MDM 20-29 MIN Reason for Visit and Comments: Follow-up [765265] Normal [facility] BNPon 11-26-2022 Natriuretic peptide B (Bld) [Mass/Vol] 366.0 pg/mL Normal <=1,800.0 [facility] Comment on above: Performed By: #### B WORKERS' COMPENSATION MEDIATOR, CMP #### [facility] [address] [address] [address] Kaitlynn Joseph CBC AUTO DIFFon 11-26-2022 BASO # 0.1 103/ul Normal 0.0-0.1 [facility] Comment on above: Performed By: #### C BC #### [facility] [address] [address] [address] Kaitlynn Joseph Basophils/100 WBC (Bld) 0.7 % Normal 0.2-2.0 [facility] Comment on above: Performed By: #### C BC #### [facility] [address] [address] [address] Kaitlynn Joseph EO # 0.2 103/ul Normal 0.0-0.7 [facility] Comment on above: Performed By: #### C BC #### [facility] [address] [place] [address] Dr. Kaitlynn Joseph Eosinophils/100 WBC (Bld) 2.8 % Normal 0.9-7.0 [facility] Comment on above: Performed By: #### C BC #### [facility] [address] [place] [address] Dr. Kaitlynn Joseph Erythrocyte distribution width (RBC) [Ratio] 14.3 % Normal 11.0-15.0 [facility] Comment on above: Performed By: #### C BC #### [facility] [address] [place] [address] Dr. Kaitlynn Joseph Hematocrit (Bld) [Volume fraction] 42.6 % Normal 36.0-48.0 [facility] Comment on above: Performed By: #### C BC #### [facility] [address] [place] [address] Dr. Kaitlynn Joseph Hemoglobin (Bld) [Mass/Vol] 13.7 g/dL Normal 12.0-16.0 [facility] Comment on above: Performed By: #### C BC #### [facility] [address] [place] [address] Dr. Kaitlynn Joseph IG # 0.02 10e3/ul Normal 0.00-0.03 [facility] Comment on above: Performed By: #### C BC #### [facility] [address] [place] [address] Dr. Kaitlynn Joseph IG % 0.3 % Normal 0.0-0.5 [facility] Comment on above: Performed By: #### C BC #### [facility] [address] [place] [address] Dr. Kaitlynn Joseph LYMPH # 1.3 103/ul Normal 1.2-3.8 [facility] Comment on above: Performed By: #### C BC #### [facility] [address] [place] [address] Dr. Kaitlynn Joseph Lymphocytes/100 WBC (Bld) 19.8 % Critically low 20.5-60.0 [facility] Comment on above: Performed By: #### C BC #### [facility] [address] [place] [address] Dr. Kaitlynn Joseph MANUAL DIFF REQ NO Normal [facility] Comment on above: Performed By: #### C BC #### [facility] [address] [place] [address] Dr. Kaitlynn Joseph MCH (RBC) [Entitic mass] 28.2 pg Normal 26.7-34.0 [facility] Comment on above: Performed By: #### C BC #### [facility] [address] [place] [address] Dr. Kaitlynn Joseph MCHC (RBC) [Mass/Vol] 32.2 g/dL Normal 29.9-35.2 [facility] Comment on above: Performed By: #### C BC #### [facility] [address] [place] [address] Dr. Kaitlynn Joseph MCV (RBC) [Entitic vol] 87.8 fL Normal 81.0-99.0 [facility] Comment on above: Performed By: #### C BC #### [facility] [address] [place] [address] Dr. Kaitlynn Joseph MONO # 0.7 103/ul Normal 0.3-0.8 [facility] Comment on above: Performed By: #### C BC #### [facility] [address] [place] [address] Dr. Kaitlynn Joseph Monocytes/100 WBC (Bld) 10.5 % Normal 1.7-12.0 [facility] Comment on above: Performed By: #### C BC #### [facility] [address] [place] [address] Dr. Kaitlynn Joseph NEUT # 4.5 103/ul Normal 1.4-6.5 [facility] Comment on above: Performed By: #### C BC #### [facility] [address] [place] [address] Dr. Kaitlynn Joseph Neutrophils/100 WBC (Bld) 65.9 % Normal 43.0-75.0 [facility] Comment on above: Performed By: #### C BC #### [facility] [address] [place] [address] Dr. Kaitlynn Joseph Platelet mean volume (Bld) [Entitic vol] 10.2 fL Normal 9.5-13.5 [facility] Comment on above: Performed By: #### C BC #### [facility] [address] [place] [address] Dr. Kaitlynn Joseph PLT 292 103/ul Normal 150-450 [facility] Comment on above: Performed By: #### C BC #### [facility] [address] [place] [address] Dr. Kaitlynn Joseph RBC 4.85 106/ul Normal 4.20-5.40 [facility] Comment on above: Performed By: #### C BC #### [facility] [address] [place] [address] Dr. Kaitlynn Joseph WBC 6.8 103/ul Normal 4.0-11.0 [facility] Comment on above: Performed By: #### C BC #### [facility] [address] [place] [address] Dr. Kaitlynn Joseph ECHOCARDIO M/2D COMPLETEon 0 11-26-2022 ECHOCARDIO M/2D COMPLETE Patient: GISEL BENNETT Exam Date: 11/26/2022 : 1940 Gender:F Ordering : DR MELISSA PINA M.D. Admission #: [id number] Family : Order #: [id number] CLICK HERE TO VIEW EXAM ECHOCARDIOGRAM REPORT [...] Area (VTI): 1.16 cm2, 0.78 cm2 Deceleration [place]: 1.28 m/s2 Pressure Half-Time: 915.54 ms Peak [...] Pina M.D. on 12/02/2022 at 18:07 Normal [facility] PROF 14(COMP METB)on 023 Albumin [Mass/Vol] 3.9 g/dL Normal 3.4-5.0 [facility] Comment on above: Performed By: #### B WORKERS' COMPENSATION MEDIATOR, CMP #### [facility] [address] [place] [address] Dr. Kaitlynn Joseph Albumin/Globulin [Mass ratio] 1.1 {ratio} Normal [facility] Comment on above: Performed By: #### B WORKERS' COMPENSATION MEDIATOR, CMP #### [facility] [address] [address] [address] Kaitlynn Joseph ALP [Catalytic activity/Vol] 63 U/L Normal 46-116 [facility] Comment on above: Performed By: #### B WORKERS' COMPENSATION MEDIATOR, CMP #### [facility] [address] [address] [address] Kaitlynn Joseph ALT [Catalytic activity/Vol] 22 U/L Normal 14-59 [facility] Comment on above: Performed By: #### B WORKERS' COMPENSATION MEDIATOR, CMP #### [facility] [address] [address] [address] Kaitlynn Joseph Anion gap [Moles/Vol] 12.2 mmol/L Normal [facility] Comment on above: Performed By: #### B WORKERS' COMPENSATION MEDIATOR, CMP #### [facility] [address] [address] [address] Kaitlynn Joseph AST [Catalytic activity/Vol] 17 U/L Normal 15-37 [facility] Comment on above: Performed By: #### B WORKERS' COMPENSATION MEDIATOR, CMP #### [facility] [address] [address] [address] Kaitlynn Joseph Bilirubin [Mass/Vol] 0.4 mg/dL Normal 0.2-1.0 [facility] Comment on above: Performed By: #### B WORKERS' COMPENSATION MEDIATOR, CMP #### [facility] [address] [address] [address] Kaitlynn Joseph Calcium [Mass/Vol] 9.4 mg/dL Normal 8.5-10.1 [facility] Comment on above: Performed By: #### B WORKERS' COMPENSATION MEDIATOR, CMP #### [facility] [address] [address] [address] Kaitlynn Joseph Chloride [Moles/Vol] 103 mmol/L Normal 98-107 [facility] Comment on above: Performed By: #### B WORKERS' COMPENSATION MEDIATOR, CMP #### [facility] [address] [address] [address] Kaitlynn Joseph CO2 [Moles/Vol] 32.0 mmol/L Normal 21.0-32.0 [facility] Comment on above: Performed By: #### B WORKERS' COMPENSATION MEDIATOR, CMP #### [facility] [address] [address] [address] Kaitlynn Joseph Creatinine [Mass/Vol] 0.86 mg/dL Normal 0.55-1.02 [facility] Comment on above: Performed By: #### B WORKERS' COMPENSATION MEDIATOR, CMP #### [facility] [address] [address] [address] Kaitlynn Joseph EGFR-AF ANGOLAN >60 Normal >=60 [facility] Comment on above: Performed By: #### B WORKERS' COMPENSATION MEDIATOR, CMP #### [facility] [address] [address] [address] Kaitlynn Joseph EGFR-NON AF ANGOLAN >60 Normal >=60 [facility] Comment on above: Performed By: #### B WORKERS' COMPENSATION MEDIATOR, CMP #### [facility] [address] [address] [address] Kaitlynn Joseph Globulin (S) [Mass/Vol] 3.7 g/dL Normal [facility] Comment on above: Performed By: #### B WORKERS' COMPENSATION MEDIATOR, CMP #### [facility] [address] [address] [address] Kaitlynn Joseph Glucose [Mass/Vol] 101 mg/dL Normal 74-106 [facility] Comment on above: Performed By: #### B WORKERS' COMPENSATION MEDIATOR, CMP #### [facility] [address] [place] [address] Dr. Kaitlynn Joseph Potassium [Moles/Vol] 4.2 mmol/L Normal 3.5-5.1 [facility] Comment on above: Performed By: #### B WORKERS' COMPENSATION MEDIATOR, CMP #### [facility] [address] [place] [address] Dr. Kaitlynn Joseph Protein [Mass/Vol] 7.6 g/dL Normal 6.4-8.2 [facility] Comment on above: Performed By: #### B WORKERS' COMPENSATION MEDIATOR, CMP #### [facility] [address] [place] [address] Dr. Kaitlynn Joseph Sodium [Moles/Vol] 143 mmol/L Normal 136-145 [facility] Comment on above: Performed By: #### B WORKERS' COMPENSATION MEDIATOR, CMP #### [facility] [address] [place] [address] Dr. Kaitlynn Joseph Urea nitrogen [Mass/Vol] 21.0 mg/dL Critically high 7.0-18.0 [facility] Comment on above: Performed By: #### B WORKERS' COMPENSATION MEDIATOR, CMP #### [facility] [address] [place] [address] Dr. Kaitlynn Joseph Urea nitrogen/Creatinine [Mass ratio] 24.4 mg/mg Normal [facility] Comment on above: Performed By: #### B WORKERS' COMPENSATION MEDIATOR, CMP #### [facility] [address] [address] [address] Kaitlynn Joseph CBC AUTO DIFFon 02-19-2022 BASO # 0.0 103/ul Normal 0.0-0.1 [facility] Comment on above: Performed By: #### C BC #### [facility] [address] [place] [address] Dr. Kaitlynn Joseph Basophils/100 WBC (Bld) 0.5 % Normal 0.2-2.0 [facility] Comment on above: Performed By: #### C BC #### [facility] [address] [place] [address] Dr. Kaitlynn Joseph EO # 0.1 103/ul Normal 0.0-0.7 [facility] Comment on above: Performed By: #### C BC #### [facility] [address] [place] [address] Dr. Kaitlynn Joseph Eosinophils/100 WBC (Bld) 2.1 % Normal 0.9-7.0 [facility] Comment on above: Performed By: #### C BC #### [facility] [address] [place] [address] Dr. Kaitlynn Joseph Erythrocyte distribution width (RBC) [Ratio] 14.5 % Normal 11.0-15.0 [facility] Comment on above: Performed By: #### C BC #### [facility] [address] [place] [address] Dr. Kaitlynn Joseph Hematocrit (Bld) [Volume fraction] 42.0 % Normal 36.0-48.0 [facility] Comment on above: Performed By: #### C BC #### [facility] [address] [place] [address] Dr. Kaitlynn Joseph Hemoglobin (Bld) [Mass/Vol] 13.4 g/dL Normal 12.0-16.0 [facility] Comment on above: Performed By: #### C BC #### [facility] [address] [place] [address] Dr. Kaitlynn Joseph IG # 0.02 10e3/ul Normal 0.00-0.03 [facility] Comment on above: Performed By: #### C BC #### [facility] [address] [place] [address] Dr. Kaitlynn Joseph IG % 0.3 % Normal 0.0-0.5 [facility] Comment on above: Performed By: #### C BC #### [facility] [address] [place] [address] Dr. Kaitlynn Joseph LYMPH # 1.5 103/ul Normal 1.2-3.8 [facility] Comment on above: Performed By: #### C BC #### [facility] [address] [place] [address] Dr. Kaitlynn Joseph Lymphocytes/100 WBC (Bld) 25.0 % Normal 20.5-60.0 [facility] Comment on above: Performed By: #### C BC #### [facility] [address] [place] [address] Dr. Kaitlynn Joseph MANUAL DIFF REQ NO Normal [facility] Comment on above: Performed By: #### C BC #### [facility] [address] [place] [address] Dr. Kaitlynn Joseph MCH (RBC) [Entitic mass] 28.4 pg Normal 26.7-34.0 [facility] Comment on above: Performed By: #### C BC #### [facility] [address] [place] [address] Dr. Kaitlynn Joseph MCHC (RBC) [Mass/Vol] 31.9 g/dL Normal 29.9-35.2 [facility] Comment on above: Performed By: #### C BC #### [facility] [address] [place] [address] Dr. Kaitlynn Joseph MCV (RBC) [Entitic vol] 89.0 fL Normal 81.0-99.0 [facility] Comment on above: Performed By: #### C BC #### [facility] [address] [place] [address] Dr. aKitlynn Joseph MONO # 0.7 103/ul Normal 0.3-0.8 [facility] Comment on above: Performed By: #### C BC #### [facility] [address] [place] [address] Dr. Kaitlynn Joseph Monocytes/100 WBC (Bld) 11.4 % Normal 1.7-12.0 [facility] Comment on above: Performed By: #### C BC #### [facility] [address] [place] [address] Dr. Kaitlynn Joseph NEUT # 3.7 103/ul Normal 1.4-6.5 [facility] Comment on above: Performed By: #### C BC #### [facility] [address] [place] [address] Dr. Kaitlynn Joseph Neutrophils/100 WBC (Bld) 60.7 % Normal 43.0-75.0 [facility] Comment on above: Performed By: #### C BC #### [facility] [address] [place] [address] Dr. Kaitlynn Joseph Platelet mean volume (Bld) [Entitic vol] 10.8 fL Normal 9.5-13.5 [facility] Comment on above: Performed By: #### C BC #### [facility] [address] [place] [address] Dr. Kaitlynn Joseph PLT 272 103/ul Normal 150-450 [facility] Comment on above: Performed By: #### C BC #### [facility] [address] [place] [address] Dr. Kaitlynn Joseph RBC 4.72 106/ul Normal 4.20-5.40 [facility] Comment on above: Performed By: #### C BC #### [facility] [address] [place] [address] Dr. Kaitlynn Joseph WBC 6.2 103/ul Normal 4.0-11.0 [facility] Comment on above: Performed By: #### C BC #### [facility] [address] [place] [address] Dr. Kaitlynn Joseph PROF CHEM 8 (BAS METB)on Anion gap [Moles/Vol] 12.4 mmol/L Normal Th [facility] Comment on above: Performed By: #### B MP #### [facility] [address] [address] [address] Kaitlynn Joseph Calcium [Mass/Vol] 9.0 mg/dL Normal 8.5-10.1 [facility] Comment on above: Performed By: #### B MP #### [facility] [address] [address] [address] Kaitlynn Joseph Chloride [Moles/Vol] 103 mmol/L Normal 98-107 [facility] Comment on above: Performed By: #### B MP #### [facility] [address] [address] [address] Kaitlynn Joseph CO2 [Moles/Vol] 28.9 mmol/L Normal 21.0-32.[address] [facility] Comment on above: Performed By: #### B MP #### [facility] [address] [address] [address] Kaitlynn Joseph Creatinine [Mass/Vol] 0.93 mg/dL Normal 0.55-1.02 [facility] Comment on above: Performed By: #### B MP #### [facility] [address] [address] [address] Kaitlynn Joseph EGFR-AF ANGOLAN >60 Normal >=[address] [facility] Comment on above: Performed By: #### B MP #### [facility] [address] [address] [address] Kaitlynn Joseph EGFR-NON AF ANGOLAN 58 mL/min/1.73m2 Critically low >=60 [facility] Comment on above: Performed By: #### B MP #### [facility] [address] [address] [address] Kaitlynn Joseph Glucose [Mass/Vol] 105 mg/dL Normal 74-106 [facility] Comment on above: Performed By: #### B MP #### [facility] [address] [address] [address] Kaitlynn Joseph Potassium [Moles/Vol] 4.3 mmol/L Normal 3.5-5.1 [facility] Comment on above: Performed By: #### B MP #### [facility] [address] [address] [address] Kaitlynn Joseph Sodium [Moles/Vol] 140 mmol/L Normal 136-145 [facility] Comment on above: Performed By: #### B MP #### [facility] [address] [address] [address] Kaitlynn Joseph Urea nitrogen [Mass/Vol] 21.0 mg/dL Critically high 7.0-18.0 [facility] Comment on above: Performed By: #### B MP #### [facility] [address] [address] [address] Kaitlynn Joseph Urea nitrogen/Creatinine [Mass ratio] 22.6 mg/mg Normal [facility] Comment on above: Performed By: #### B MP #### [facility] [address] [address] [address] Kaitlynn Joseph Encounters Encounter Date Encounter Type Care Provider Facility Start: 04-08-2024 End: 04-08-2024 ambulatory Jessie L Cindy Facility: [facility] Start: 02-05-2024 End: 02-05-2024 ambulatory MELISSA NARAYANANNUBIA [facility] Start: 12-16-2023 End: 12-16-2023 ambulatory Jessie L Cindy Facility: [facility] Start: 12-02-2023 End: 12-02-2023 ambulatory Jessie L Cindy Facility:[facility] Start: 08-06-2023 End: 08-06-2023 ambulatory Jessie L Cindy [place] [place] Start: 07-24-2023 End: 07-24-2023 ambulatory MELISSA NARAYANANNUBIA [facility] Start: 04-24-2023 ambulatory Jessie Cindy Facility:[facility] Start: 01-02-2023 End: 01-03-[address] MELISSA PINA Facility:[facility] Start: 11-26-2022 End: 11-27-[address] MELISSA PINA Facility:[facility] Start: 02-19-2022 End: 02-20-[address] MELISSA PINA Facility:[facility] Start: 02-08-2019 End: 02-09-2019 Patient encounter procedure DEFAULT PHYSICIAN Facility:[facility] Payers Date Payer Category Payer Medicare [id number] 1940 Unknown [id number] 2.16.8 [id number] 1940 Unknown [id number] 2.16.84 [id number] 1940 Unknown [id number] 2.16.84 [id number] 1940 Unknown [id number] 2.16.84 [id number] 1940 Unknown [id number] 2.16.8 [id number] 1940 Unknown [id number] 2.16.8 [id number] 1940 Unknown [id number] 2.16.8 [id number] 1940 Unknown [id number] 2.16.8 [id number] 1940 Unknown [id number] 2.16.8 [id number] Unknown Progress note 02-05-2024 Note Date & Type Note Facility 02-05-2024 Note [place] [facility] Subjective Gisel Bennett is a 83 y.o. year old female patient being seen for Follow-up (6 month-W/ echo) Patient Active Problem List Diagnosis Benign essential [...] with prior history of: Tricuspid regurgitation - significant COPD HTN Hx of hiatal hernia - surgery at [facility] in 2015. She had a normal coronary [...] changed it to 12.5 mg twice daily. I last saw her on 07/24/2023. Today she is seen in follow-up. She reports that she continues to have shortness of breath on exertion, NYHA class II. she has fatigue. No significant lower extremity swelling. She has no palpitations. No chest pain. Review of Systems Cardiovascular: Positive for dyspnea on exertion and orthopnea. Negative for chest pain, claudication, cyanosis, irregular heartbeat, leg swelling, near-syncope, palpitations, paroxysmal nocturnal dyspnea and syncope. Neurological: Positive for dizziness. Objective Visit Vitals BP 110/78 (BP Location: Left arm, Patient Position: Sitting, BP Cuff Size: Adult) Pulse 68 Resp 16 Ht 1.575 m (5' 2 ) Wt 64 kg (141 lb 3.2 oz) SpO2 98% BMI 25.83 kg/m??? Smoking Status Never BSA 1.67 m??? [...] swelling. Cervical back: Neck supple. Right lower leg: No edema. Left lower leg: No edema. Skin: General: Skin is warm and dry. Neurological: General: No focal deficit present. Mental Status: She is alert and oriented to person, place, and time. Psychiatric: Mood and Affect: Mood normal. Behavior: Behavior is cooperative. Judgment: Judgment normal. Allergies No Known Allergies Medications Current Outpatient Medications: albuterol sulfate 90 mcg/actuation aerosol powdr breath activated, Inhale by inhalation route., Disp: , Rfl: alendronate (Fosamax) 35 mg tablet, Take 1 [...] mouth in the morning., Disp: , Rfl: cholecalciferol (Vitamin D-3) 25 MCG (1000 UT) capsule, Take 2 capsules every day by oral route., Disp: , Rfl: fluticasone propion-salmeteroL (Advair Diskus) 100-50 mcg/dose diskus inhaler, Inhale 1 puff in the morning and at bedtime., Disp: , Rfl: furosemide (Lasix) 20 mg tablet, Take 1 tablet (20 mg) by mouth in the morning., Disp: 90 tablet, Rfl: 3 LYCOPENE ORAL, Take 1 tablet by mouth in the morning., Disp: , Rfl: mometasone-formoterol (Dulera 100) 100-5 mcg/actuation inhaler, Inhale 1 inhalation twice a day by inhalation route for 60 days., Disp: , Rfl: montelukast (Singulair) 10 mg tablet, Take 1 tablet by mouth in the morning., Disp: , Rfl: p (more content not included)... [facility] Progress note 07-24-2023 Note Date & Type Note Facility 07-24-2023 Note [place] [facility] - [facility] Subjective Gisel Bennett is a 83 [...] Hx of hiatal hernia - surgery at [facility] in 2015. She had a normal coronary [...] ORAL, Take 1 (more content not included)... [facility] Summary Purpose Family History No Family History Records FoundNo Family History Records FoundNo Family History Records FoundNo Family History Records Found Advance Directives No Advanced Directives Records FoundNo Advanced Directives Records FoundNo Advanced Directives Records FoundNo Advanced Directives Records Found Additional Source Comments INFORMATION SOURCE (unrecogn ized section and content) DATE CREATED AUTHOR 02/14/2019 [facility] DATE CREATED AUTHOR AUTHOR'S ORGANIZ ATION 01/10/2023 [facility] DATE CREATED AUTHOR AUTHOR'S ORGANIZ ATION 02/07/2024 [facility] DATE CREATED AUTHOR AUTHOR'S ORGANIZ ATION 04/09/2024 [facility] FOR RECORDS PERTAINING TO PATIENTS WHO [...] BE BASED ON THE PRIMARY CLINICAL RECORDS. [employer] provides no warranty or guarantee of the accuracy or completeness of information in this document.
--- NOTE | 2024-08-09 11:00 | CA_ITS ---
Patient Name: NOLAN CRAVEN MR#: [id number] : 1940 Exam Date: 08/09/2024 Ordering Doctor: DR MELISSA QUINONES M.D. ECHOCARDIOGRAM REPORT PROCEDURE: CA ECHO DOPPLER COMPLETE INDICATIONS: Valvular regurgitation, shortness of breath COMPARISON: None. DESCRIPTION: COMPLETE ECHOCARDIOGRAM Real-time transthoracic echocardiography with 2D, M-mode, spectral and color flow Doppler performed. QUALITY: Technical quality was good. LEFT VENTRICLE: Normal chamber size. Borderline left ventricular hypertrophy. Normal systolic function. LV EF: Normal left ventricular ejection fraction, (>55%). DIASTOLIC: Grade II diastolic dysfunction. ATRIAL SEPTUM: Visually appears intact. LEFT ATRIUM: Moderate dilatation. RIGHT ATRIUM: Mild dilatation. RIGHT VENTRICLE: Mild dilatation. Normal right ventricular systolic function. TRICUSPID VALVE: Normal mobility and thickness. No stenosis with mild to moderate regurgitation. Doppler studies reveal mildly (35-45) elevated right sided pressures. RVSP 39 mmHg MITRAL VALVE: Normal mobility and thickness. No evidence of mitral valve stenosis. There is no mitral annular calcification. Trivial mitral regurgitation. AORTIC VALVE: Normal trileaflet appearance. No visible sclerosis. Normal leaflet mobility. No evidence of aortic valve stenosis. Trivial aortic regurgitation. AORTIC ROOT: Normal diameter and appearance. Ascending aorta is normal in size. PULMONIC VALVE: Normal thickness and mobility. No stenosis. Trivial regurgitation. PERICARDIUM: No evidence of pericardial effusion. IVC: Collapses with inspirations. IVC is normal in size. PLEURA: CONCLUSION: 1. Normal left ventricular size and systolic function. LVEF is estimated at 60%. 2. Mildly dilated right ventricle with normal systolic function. 3. Grade 2 diastolic dysfunction. 4. Mild to moderate biatrial dilatation. 5. Mild to moderate tricuspid regurgitation. 6. Mildly elevated right-sided pressures. Adult Echocardiography Procedure Report Left Ventricle LVEDD (3.7 - 5.6 cm): 4.00 cm LVESD (2.2 - 4.0 cm): 2.80 cm LVIVS thickness (0.6 - 1.2 cm): 1.05 cm LVPW thickness (0.5 - 1.0 cm): 1.04 cm e': 0.07 m/s E - e': 12.60 LVOT Max Gradient: 3.90 mm[Hg] LVOT Area (cm2): 0.99 m/s Peak Velocity (LVOT): 0.99 m/s Mean Velocity (LVOT): 0.62 m/s LVOT Diameter 1.89 cm Left Atrium LA Volume Index (2D A2C): 38.06 ml/m2 Left Atrium Systolic Dimension: 4.11 cm Mitral Valve MV E to A Ratio: 0.98 Mitral Valve A-Wave Peak Velocity: 0.88 m/s Mitral Valve E-Wave Peak Velocity: 0.86 m/s Right Ventricle Aorta AO Root Diam: 2.76 cm Ascending Ao Diam: 2.75 cm Aortic Valve AoV Area (Peak Eamon): 2.30 cm2, 2.30 cm2 AoV Area (VTI): 2.13 cm2, 2.13 cm2 Peak Velocity(Antegrade Flow): 1.20 m/s Peak Gradient(Antegrade Flow): 5.78 mm[Hg] Mean Velocity(Antegrade Flow): 0.80 m/s Mean Gradient(Antegrade Flow): 2.91 mm[Hg] Velocity Time Integral: 29.35 cm Tricuspid Valve Peak Velocity (Regurgitant Flow): 2.63 m/s, 2.98 m/s, 2.61 m/s, 2.72 m/s Pulmonic Valve Mean Gradient: 1.55 mm[Hg] Mean Velocity: 0.59 m/s Peak Velocity: 0.83 m/s, 0.76 m/s Peak Gradient: 2.31 mm[Hg], 2.75 mm[Hg] Right Atrium Right Atrium Systolic Pressure: 69.70 ml, 69.70 ml Dictated by: Melissa Quinones M.D. on 08/09/2024 at 17:21 Approved by: Melissa Quinones M.D. on 08/09/2024 at 17:35
== END 2024-08-09 10:51 | disposition home or self-care (01) ==
LOC: CARD 10:51
PROVIDERS: PCP Family Medicine; Visit Provider Internal Medicine Interventional Cardiology
DX: I36.1 Nonrheumatic tricuspid (valve) insufficiency (principal); R60.9 Edema, unspecified
CPT/HCPCS: 93306

== ENCOUNTER 2024-11-08 12:45 | Outpatient (OUT) | payer MEDICARE, SELFPAY ==
--- NOTE | 2024-11-08 12:48 | US_ITS ---
[address] [address] Patient Name: NOLAN CRAVEN MRN: [id number] date: 1940 Sex: F Assigned Patient Location: [place] Current Patient Location: [place] Accession/Order Number: [id number] Exam Date: 11/08/2024 12:50 Report Date: 11/08/2024 16:29 At the request of: NAIN HARDY Procedure: US carotid duplex BI DUPLEX ULTRASOUND EXAMINATION OF THE CAROTID ARTERIES. COMPARISON: None. HISTORY / INDICATIONS: Evaluate carotid stenosis TECHNIQUE: Bilateral common carotid arteries, extracranial internal and external carotid arteries are evaluated with guzmán-scale imaging, color Doppler, and spectral analysis according to a standard protocol. ICA-CCA ratios are calculated with quality audit representative peak-systolic velocities and recorded. Vertebral arteries are evaluated in one segment to evaluate for patency and character of flow. Comparison with previous evaluation is performed when available. Unless otherwise specified, all velocities are measured in cm/sec. Carotid stenosis is reported according to validated velocity parameters, similar to NASCET criteria. FINDINGS: Right Carotid: Mild plaque was noted. Velocity measurements as follows: Internal Carotid Artery 103/26 and 76/26. ICA to CCA ratio: 0.8. Left Carotid: Mild plaque was noted. Velocity measurements as follows: Internal Carotid Artery 89/18 and 92/29. ICA to CCA ratio: 0.7. Antegrade flow was seen in both vertebral arteries. CONCLUSION: 1. Less than 50% stenosis of the right ICA. 2. Less than 50% stenosis of the left ICA. 3. Vertebral arteries are patent and demonstrate antegrade flow. Electronically authenticated by: Zac ROBERTS Date: 11/08/2024 16:29
--- OUTSIDE RECORDS SUMMARY | 2024-11-08 12:48 | XMS_ITS | CCD ---
Author Organization [facility] Care Team Providers Care Net Trainer Name Role Phone PHYSICIAN, DEFAULT Admitting Unavailable PHYSICIAN, DEFAULT Attending Unavailable RIDDLECORINNE PUCKETT Primary Care Unavailable MOUKARBEL, DR TORRES Admitting Unavailable MOUKARBEL, DR TORRES Attending Unavailable RIDDLE ., DR CORINNE Ferreira Primary Care Unavailable MOUKARBEL, DR TORRES Consulting Unavailable MOUKARBEL, DR TORRES Admitting Unavailable MOUKARBEL, DR TORRES Attending Unavailable RIDDLE ., DR CORINNE Ferreira Primary Care Unavailable MOUKARBEL, DR TORRES Consulting Unavailable MOUKARBEL, DR TORRES Admitting Unavailable MOUKARBEL, DR TORRES Attending Unavailable RIDDLE ., DR CORINNE Ferreira Primary Care Unavailable MOUKARBEL, DR TORRES Consulting Unavailable MOUKARBEL, MELISSA Attending Unavailable MOUKARBEL, MELISSA Attending Unavailable Cindy, Jessie Marvin Attending Unavailable Cindy, Jessie Marvin Attending Unavailable Cindy, Jessie Marvin Attending Unavailable Cindy, Jessie Marvin Admitting Unavailable Cindy, Jessie Marvin Attending Unavailable Cindy, Jessie Marvin Attending Unavailable RossJose Attending Unavailable Problems Active Problems Problem Classification Problem Date Documented Da te Episodic/Chronic Congestive heart failure; nonhypertensive (2 sources) Chronic diastolic (congestive) heart failure; Translations: [Chronic diastolic (congestive) heart failure] Onset: 08-31-2024 Chronic Essential hypertension (6 sources) Essential (primary) [...] 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 she is on the correct antibiotic to treat the bacteria that caused the infection. encourage her to complete cipro Results: Date Result Type Ind Result Name 11/04/2024 13:32 EST MBO POS Urine Culture pt notified Normal [facility] Reminders Reminders - From: Jessie Ty To: B - Clinical; Sent: 11/07/2024 13:09:10 EST Show up: 11/07/2024 13:09:00 EST Subject: Ambulatory Reminder Due Date/Time: 11/08/2024 13:08:00 EST Urine culture was positive. she is on the correct antibiotic to treat the bacteria that caused the infection. encourage her to complete cipro Results: Date Result Type Ind Result Name 11/04/2024 13:32 EST MBO POS Urine Culture Normal [facility] C Urineon 11-06-2024 Bacteria identified Cx Nom (U) Microbiology PROCEDURE: Urine Culture [R1] SOURCE: U CleanCatch BODY SITE: COLLECTED DATE/TIME: 11/04/2024 13:32 EST RECEIVED DATE/TIME: 11/04/2024 17:48 EST START DATE/TIME: 11/04/2024 17:48 EST FREE TEXT SOURCE: Jessie Ty Jodi L FINAL REPORTS Final Report [] Verified Date/Time: 11/06/2024 09:36 EST 60,000 cfu/ml Klebsiella pneumoniae 2,000 cfu/ml Mixed skin contaminants SUSCEPTIBILITY RESULTS LEGEND: S=Susceptible, N/R=Not Reported, Blank=Data not available, or drug not advisable or tested, I=Intermediate, ESBL=Extended spectrum beta-lactamase, R=Resistant, TFG=Thymidine-depend ent strain, AZAM=Beta-lactamase positive, DO=mcg/m;(mg/L), S*=Predicted susceptible interp, R*=Predicted resistant interp Klepne Antibiotic DO Dilutn DO Interp Ampicillin 16 R* Ampicillin/ <=8/4 S Sulbactam Aztreonam <=4 S Cefazolin <=2 S Cefepime <=2 S Ceftazidime <=1 S Ceftazidime/ <=8 S Avibactam Ceftriaxone <=1 S Cefuroxime <=4 S Ciprofloxacin <=0.25 S Ertapenem <=0.5 S Gentamicin <=2 S Levofloxacin <=0.5 S Meropenem <=1 S Nitrofurantoin <=32 S Piperacillin/ <=8 S Tazobactam Tetracycline <=4 S Tobramycin <=2 S Trimethoprim/ <=2/38 S Sulfa Performing Locations R1: This test was performed at: [facility], [address] [place] [address], [id number] , , [facility] Comment on above: Performed By: #### 2 [id number] #### [facility] [address] [place] [address] Ambulatory Visit Summaryon 0 11-03-2024 Ambulatory Visit Summary Ambulatory Visit Summary GISEL BENNETT :1940 Visit Date:11/03/2024 Ambulatory Visit Instructions Your Diagnosis Memory changes Hallucinations BMI 26.0-26.9,adult Non-smoker Carotid bruit Your Care Team Attending Physician - Jessie [...] salpingo-oophorectom y. Discharge Vitals Heart Rate (Peripheral) 68 Respiratory Rate 18 Blood Pressure 112/72 Height 151.0 cm Height 59 in Weight 61.5 kg Weight 135.584 lb BMI 26.97 Medications What How Much When Why Instructions Unchanged albuterol (Albuterol (Eqv-Ventolin HFA) 90 mcg/ [...] 1 Tablets By Mouth Every day Unchanged celecoxib (celecoxib 200 mg Cap) 1 Capsules By Mouth Every day Leg weakness, bilateral Hip pain, bilateral Right knee pain Swelling of right knee joint Low back pain BMI 27.0-27.9,adult Unchanged formoterol-mometason e (Dulera 100 mcg-5 mcg/ [...] for. Arthritis of right knee BMI 27.0-27.9,adult Carotid bruit Encounter for immunization Essential hypertension Fatigue Gingivitis, acute Hallucinations Hip pain, bilateral Leg weakness, bilateral Low back pain Memory changes Right knee pain Scoliosis Swelling of right knee joint Wellness examination Patient Survey You may receive a survey via text or e-mail asking about your office visit. Please share your experience with us by completing your survey. We appreciate your feedback and thank you for choosing us for your care. Normal [facility] Family Medicine Office/Clini c Noteon 11-03-2024 Family Medicine Office/Clinic Note Family Medicine Office/Clinic Note HPI Staff Gisel is a 84 year old female presenting for acute visit Onset: 3-4 months worse since Sushil Pt is having memory issues and sometimes when people ask her questions sometimes she has a hard time getting the words out. Daughter states the other day she didn't want to go get her hair done she has seen copy chief cars and thought someone was out on the loose. pt does live home along but daughter checks on her often and take her food. Pt didn't remember what she brought for dinner. History of Present Illness pt presents today with c/o memory issues and blanking out, having trouble getting words out Review of Systems PHQ Score Initial Depression Screen Score: 0 SCORE Physical Exam Vitals & Measurements HR: 68(Peripheral) RR: 18 BP: 112/72 HT: 59 in HT: 151.0 cm WT: 61.5 kg WT: 135.584 lb BMI: 26.97 General: alert, no acute distress ENMT: oral mucosa moist, no pharyngeal erythema or exudate Cardiovascular: regular rate and rhythm, normal peripheral perfusion Respiratory: Lungs CTA, respirations non labored Extremities: no deformity, no trauma Neurological: oriented x 4, LOC appropriate for age, CN II-XII intact, motor strength equal & normal bilaterally, speech normal Assessment/Plan 1. Memory changes (R41.3: Other amnesia) pt and daughter both express concerns of memory changes. many examples were provided. she has left oven on, went to [facility] they asked her for her [facility] card she went blank and had no idea what they were asking for they then asked for her phone number and she couldn't remember her phone number. Later she told her daughter, that was so embarrassing at [facility] earlier. She is aware that she is regressing. Her daughter is concerned about her safety. discussed getting a weekly medication organizer to help her remember if she took her meds. she is concerned that her mother had similar symptoms when she was diagnosed with Alzheimer's 20ish years ago. discussed referral to neurology. daughter will discuss with other siblings to decide where they would like referral sent. 2. Hallucinations (R44.3: Hallucinations, unspecified) daughter states she has had a few episodes of hallucinations. called and said her son and grandson came to visit and they did not. she heard police sirens and was afraid to go get her hair done because she feared a bad person was on the loose. will order u/s of carotid arteries. 3. Abnormal MMSE (F99: Mental disorder, not otherwise specified) MMSE was performed by [facility] nurse. pt did not draw clock correctly and was 0/3 on memory words. 4. Carotid bruit (R09.89: Other specified symptoms and signs involving the circulatory and respiratory systems) ordered carotid artery u/s 5. Family history of Alzheimer disease (Z82.0: Family history of epilepsy and other diseases of the nervous system) pts mother was diagnosed with Alzheimer's around the same age as her 6. BMI 26.0-26.9,adult (Z68.26: Body mass index [BMI] 26.0-26.9, adult) BMI education given 7. Non-smoker (Z78.9: Other specified health status) continue not smoking Ordered: amoxicillin, 500 mg = 1 cap(s), Oral, q12hr, # 14 cap(s), Refills(s) 0, Pharmacy: [facility], 151, cm, 04/08/24 11:38:00 EDT, Height/Length Dosing, 62, kg, 04/08/24 11:38:00 EDT, Weight Dosing Follow-up No qualifying data available Problem List/Past Medical History Ongoing Abnormal MMSE Arthritis of right knee BMI 27.0-27.9,adult Carotid bruit Encounter for immunization Essential hypertension Family history of Alzheimer disease Fatigue Gingivitis, acute Hallucinations Hip pain, bilateral Leg weakness, bilateral Low back pain Memory changes Right knee pain Scoliosis Swelling of right [...] Date Status Comments influenza virus vaccine, inactivated 12 (more content not included)... Normal [facility] Comment on above: Result Comment: Elec tronically Signed By: Jessie Ty\.br\Date and Time Signed: 11/03/24 15:52 EST Office Visiton 08-31-2024 Follow-up visit [id number] Gisel Bennett 1940 F Date Provider Department Center 08/31/2024 MELISSA CAMPOS CARD [facility] Family History Problem Relation Age of Onset Asthma Other Cancer Other Family Status - Relation Status Age at Other Level of Service:76626 [place] OFFICE/OUTPATIENT ESTABLISHED LOW MDM 20 MIN Normal [facility] Family Medicine Office/Clini c Noteon 04-08-2024 Family Medicine Office/Clinic Note Family Medicine Office/Clinic Note HPI Staff Gisel [...] q12hr, # 14 cap(s), Refills(s) 0, Pharmacy: [facility], 151, cm, 04/08/24 11:38:00 EDT, Height/Length Dosing, 62, kg, 04/08/24 11:38:00 EDT, Weight Dosing 2. BMI 27.0-27.9,adult (Z68.27: Body mass index [BMI] 27.0-27.9, adult) BMI education given Ordered: amoxicillin, 500 mg = 1 cap(s), Oral, q12hr, # 14 cap(s), Refills(s) 0, Pharmacy: [facility], 151, cm, 04/08/24 11:38:00 EDT, Height/Length Dosing, 62, kg, 04/08/24 11:38:00 EDT, Weight Dosing 3. Non-smoker (Z78.9: Other specified health status) continue not smoking Ordered: amoxicillin, 500 mg = 1 cap(s), Oral, q12hr, # 14 cap(s), Refills(s) 0, Pharmacy: [facility], 151, cm, 04/08/24 11:38:00 EDT, Height/Length Dosing, 62, kg, 04/08/24 11:38:00 EDT, Weight Dosing Orders: formoterol-mometason e, 2 puff(s), Inhalation, BID, 13 gram, Refill(s) 11, rinse mouth and throat after use, [facility], 151, cm, 04/08/24 11:38:00 EDT, Height/Length Dosing, 62, kg, 04/08/24 11:38:00 EDT, Weight Dosing formoterol-mometason e, 2 puff(s), Inhalation, BID, 13 gram, Refill(s) 11, rinse mouth and throat after use, [facility], 151, cm, 08/06/23 8:53:00 EDT, [...] virus vaccine, inactivated 08/06/2023 Given SARS-CoV-2 (COVID-19) mRNAMUL.ORD![id number] 08/25/2022 Recorded 2023-11-30: [id number] influenza virus vaccine, inactivated 08/31/2021 Recorded SARS-CoV-2 (COVID-19) mRNA-1273 vaccine 08/07/2021 Recorded SARS-CoV-2 (COVID-19) mRNA-1273 vaccine 11/28/2020 Recorded SARS-CoV-2 (COVID-19) mRNA-1273 vaccine 10/25/2020 Recorded influenza virus vaccine, inactivated 08/13/2019 Recorded influenza virus vaccine, inactivated 08/25/2018 Recorded influenza virus vaccine, inactivated 07/30/2016 Recorded pneumococcal 23-valent vaccine 08/02/2014 Recorded pneumococcal 23-valent vaccine 08/05/2002 Recorded Normal [facility] Comment on above: Result Comment: Elec tronically Signed By: Jessie Ty.br\Date and Time Signed: 04/08/24 12:39 EDT Office Visiton 02-05-2024 Follow-up visit [id number] Gisel Bennett 1940 F Date Provider Department Center 02/05/2024 MELISSA CAMPOS CARD [facility] Family History Problem Relation Age of Onset Asthma Other Cancer Other Family Status - Relation Status Age at Other Level of Service:77629 [place] OFFICE/OUTPATIENT ESTABLISHED MOD MDM 30 MIN Reason for Visit and Comments: Follow-up [953075] - 6 month-W/ echo Normal [facility] Echocardiographyon 4 Echocardiography [id number] #1.00TIFF Normal [facility] Ambulatory Visit Summaryon 0 12-16-2023 Ambulatory [...] Pharmacy Information [facility]: [address], [place] [id number] [phone] What How Much When Why Comments Stop [...] choosing us for your care. Bernadette [facility] Family Medicine Office/Clini c Noteon 12-16-2023 Family [...] Daily, # 90 cap(s), Refills(s) 1, Pharmacy: [facility], 151, cm, 12/16/23 15:40:00 EST, Height/Length Dosing, 63.4, kg, 12/16/23 15:40:00 EST, Weight Dosing celecoxib, 200 mg = 1 cap(s), Oral, Daily, # 30 cap(s), Refills(s) 0, Pharmacy: [facility], 151, cm, 12/02/23 15:29:00 EST, Height/Length Dosing, 140.4, kg, 12/02/23 15:29:00 EST, Weight Dosing 3. Scoliosis (M41.9: Scoliosis, unspecified) discussed s ray results. discussed referrral to ortho or pain management 4. BMI 27.0-27.9,adult (Z68.27: Body mass index [BMI] 27.0-27.9, adult) BMI education compelte Ordered: celecoxib, 200 mg = 1 cap(s), Oral, Daily, # 90 cap(s), Refills(s) 1, Pharmacy: [facility], 151, cm, 12/16/23 15:40:00 EST, Height/Length Dosing, 63.4, kg, 12/16/23 15:40:00 EST, Weight Dosing celecoxib, 200 mg = 1 cap(s), Oral, Daily, # 30 cap(s), Refills(s) 0, Pharmacy: [facility], 151, cm, 12/02/23 15:29:00 EST, Height/Length Dosing, 140.4, kg, 12/02/23 15:29:00 EST, Weight Dosing 5. Non-smoker (Z78.9: Other specified health status) continue not smoking Orders: montelukast, 10 mg = 1 tab(s), Oral, qPM, # 30 tab(s), Refills(s) 2, Pharmacy: [facility] Follow-up No qualifying data available Problem List/Past [...] virus vaccine, inactivated 08/06/2023 Given SARS-CoV-2 (COVID-19) mRNAMUL.ORD![id number] 08/25/2022 Recorded 2023-11-30: TPV80 influenza virus vaccine, inactivated 08/31/2021 Recorded SARS-CoV-2 (COVID-19) mRNA-1273 vaccine 08/07/2021 Recorded SARS-CoV-2 (COVID-19) mRNA-1273 vaccine 11/28/2020 Recorded SARS-CoV-2 (COVID-19) mRNA-1273 vaccine 10/25/2020 Recorded influenza virus vaccine, inactivated 08/13/2019 Recorded influenza virus vaccine, inactivated 08/25/2018 Recorded (more content not included)... Normal [facility] Comment on above: Result Comment: Elec tronically Signed By: Jessie Ty\.traci\Date and Time Signed: 12/16/23 15:59 EST Physician Orderon 12-03-2023 Physician Order [id number] #1.00TIFF [facility] Ambulatory Visit Summaryon 0 12-02-2023 Ambulatory Visit [...] 3:40 PM EST With: Jessie Ty Where: [facility] [place] Normal [facility] Family Medicine Office/Clini c Noteon 12-02-2023 [...] # 30 cap(s), Refills(s) 0, Pharmacy: [facility], 151, cm, 12/02/23 15:29:00 EST, Height/Length [...] EST, Michelle (more content not included)... Normal [facility] Comment on above: Result Comment: Elec tronically Signed By: Jessie Ty\.br\Date and Time Signed: 12/02/23 17:02 EST BNPon 11-26-2022 Natriuretic peptide B (Bld) [Mass/Vol] 366.0 pg/mL Normal <=1,800.0 [facility] Comment on above: Performed By: #### B VOCATIONAL PSYCHOLOGIST, CMP #### [facility] [address] [place] [address] Dr. Kaitlynn Joseph CBC AUTO DIFFon 11-26-2022 BASO # 0.1 103/ul Normal 0.0-0.1 [facility] Comment on above: Performed By: #### C BC #### [facility] [address] [place] [address] Dr. Kaitlynn Joseph Basophils/100 WBC (Bld) 0.7 % Normal 0.2-2.0 [facility] Comment on above: Performed By: #### C BC #### [facility] [address] [place] [address] Dr. Kaitlynn Joseph EO # 0.2 103/ul Normal 0.0-0.7 [facility] Comment on above: Performed By: #### C BC #### [facility] [address] [place] [address] Dr. Kaitlynn Joseph Eosinophils/100 WBC (Bld) 2.8 % Normal 0.9-7.0 [facility] Comment on above: Performed By: #### C BC #### [facility] [address] [place] [address] Dr. Kaitlynn Joseph Erythrocyte distribution width (RBC) [Ratio] 14.3 % Normal 11.0-15.0 [facility] Comment on above: Performed By: #### C BC #### [facility] [address] [place] [address] Dr. Kaitlynn Joseph Hematocrit (Bld) [Volume fraction] 42.6 % Normal 36.0-48.0 [facility] Comment on above: Performed By: #### C BC #### [facility] [address] [place] [address] Dr. Kaitlynn Joseph Hemoglobin (Bld) [Mass/Vol] 13.7 g/dL Normal 12.0-16.0 [facility] Comment on above: Performed By: #### C BC #### [facility] [address] [place] [address] Dr. Kaitlynn Joseph IG # 0.02 10e3/ul Normal 0.00-0.03 [facility] Comment on above: Performed By: #### C BC #### [facility] [address] [place] [address] Dr. Kaitlynn Joseph IG % 0.3 % Normal 0.0-0.5 [facility] Comment on above: Performed By: #### C BC #### [facility] [address] [place] [address] Dr. Kaitlynn Joseph LYMPH # 1.3 103/ul Normal 1.2-3.8 [facility] Comment on above: Performed By: #### C BC #### [facility] [address] [place] [address] Dr. Kaitlynn Joseph Lymphocytes/100 WBC (Bld) 19.8 % Critically low 20.5-60.0 [facility] Comment on above: Performed By: #### C BC #### [facility] [address] [place] [address] Dr. Kaitlynn Joseph MANUAL DIFF REQ NO Normal [facility] Comment on above: Performed By: #### C BC #### [facility] [address] [place] [address] Dr. Kaitlynn Joseph MCH (RBC) [Entitic mass] 28.2 pg Normal 26.7-34.0 [facility] Comment on above: Performed By: #### C BC #### [facility] [address] [place] [address] Dr. Kaitlynn Joseph MCHC (RBC) [Mass/Vol] 32.2 g/dL Normal 29.9-35.2 [facility] Comment on above: Performed By: #### C BC #### [facility] [address] [place] [address] Dr. Kaitlynn Joseph MCV (RBC) [Entitic vol] 87.8 fL Normal 81.0-99.0 [facility] Comment on above: Performed By: #### C BC #### [facility] [address] [place] [address] Dr. Kaitlynn Joseph MONO # 0.7 103/ul Normal 0.3-0.8 [facility] Comment on above: Performed By: #### C BC #### [facility] [address] [place] [address] Dr. Kaitlynn Joseph Monocytes/100 WBC (Bld) 10.5 % Normal 1.7-12.0 [facility] Comment on above: Performed By: #### C BC #### [facility] [address] [place] [address] Dr. Kaitlynn Joseph NEUT # 4.5 103/ul Normal 1.4-6.5 [facility] Comment on above: Performed By: #### C BC #### [facility] [address] [place] [address] Dr. Kaitlynn Joseph Neutrophils/100 WBC (Bld) 65.9 % Normal 43.0-75.0 [facility] Comment on above: Performed By: #### C BC #### [facility] [address] [place] [address] Dr. Kaitlynn Joseph Platelet mean volume (Bld) [Entitic vol] 10.2 fL Normal 9.5-13.5 [facility] Comment on above: Performed By: #### C BC #### [facility] [address] [place] [address] Dr. Kaitlynn Joseph PLT 292 103/ul Normal 150-450 [facility] Comment on above: Performed By: #### C BC #### [facility] [address] [place] [address] Dr. Kaitlynn Joseph RBC 4.85 106/ul Normal 4.20-5.40 [facility] Comment on above: Performed By: #### C BC #### [facility] [address] [place] [address] Dr. Kaitlynn Joseph WBC 6.8 103/ul Normal 4.0-11.0 [facility] Comment on above: Performed By: #### C BC #### [facility] [address] [place] [address] Dr. Kaitlynn Joseph ECHOCARDIO M/2D COMPLETEon 0 11-26-2022 ECHOCARDIO M/2D COMPLETE Patient: GISEL BENNETT Exam Date: 11/26/2022 : 1940 Gender:F Ordering : DR MELISSA QUINONES M.D. Admission #: [id number] Family : Order #: [id number] CLICK HERE TO VIEW EXAM ECHOCARDIOGRAM REPORT [...] Area (VTI): 1.16 cm2, 0.78 cm2 Deceleration Sharp: 1.28 m/s2 Pressure Half-Time: 915.54 ms Peak [...] 82.66 ml, 127.85 ml Dictated by: Melissa Quinones M.D. on 12/02/2022 at 17:57 Approved by: Melissa Quinones M.D. on 12/02/2022 at 18:07 Normal [facility] PROF 14(COMP METB)on 023 Albumin [Mass/Vol] 3.9 g/dL Normal 3.4-5.0 [facility] Comment on above: Performed By: #### B VOCATIONAL PSYCHOLOGIST, CMP #### [facility] [address] [place] [address] Dr. Kaitlynn Joseph Albumin/Globulin [Mass ratio] 1.1 {ratio} Normal [facility] Comment on above: Performed By: #### B VOCATIONAL PSYCHOLOGIST, CMP #### [facility] [address] [address] [address] Kaitlynn Joseph ALP [Catalytic activity/Vol] 63 U/L Normal 46-116 [facility] Comment on above: Performed By: #### B VOCATIONAL PSYCHOLOGIST, CMP #### [facility] [address] [address] [address] Kaitlynn Joseph ALT [Catalytic activity/Vol] 22 U/L Normal 14-59 [facility] Comment on above: Performed By: #### B VOCATIONAL PSYCHOLOGIST, CMP #### [facility] [address] [address] [address] Kaitlynn Joseph Anion gap [Moles/Vol] 12.2 mmol/L Normal [facility] Comment on above: Performed By: #### B VOCATIONAL PSYCHOLOGIST, CMP #### [facility] [address] [address] [address] Kaitlynn Joseph AST [Catalytic activity/Vol] 17 U/L Normal 15-37 [facility] Comment on above: Performed By: #### B VOCATIONAL PSYCHOLOGIST, CMP #### [facility] [address] [address] [address] Kaitlynn Joseph Bilirubin [Mass/Vol] 0.4 mg/dL Normal 0.2-1.0 [facility] Comment on above: Performed By: #### B VOCATIONAL PSYCHOLOGIST, CMP #### [facility] [address] [address] [address] Kaitlynn Joseph Calcium [Mass/Vol] 9.4 mg/dL Normal 8.5-10.1 [facility] Comment on above: Performed By: #### B VOCATIONAL PSYCHOLOGIST, CMP #### [facility] [address] [address] [address] Kaitlynn Joseph Chloride [Moles/Vol] 103 mmol/L Normal 98-107 [facility] Comment on above: Performed By: #### B VOCATIONAL PSYCHOLOGIST, CMP #### [facility] [address] [address] [address] Kaitlynn Joseph CO2 [Moles/Vol] 32.0 mmol/L Normal 21.0-32.0 [facility] Comment on above: Performed By: #### B VOCATIONAL PSYCHOLOGIST, CMP #### [facility] [address] [address] [address] Kaitlynn Joseph Creatinine [Mass/Vol] 0.86 mg/dL Normal 0.55-1.02 [facility] Comment on above: Performed By: #### B VOCATIONAL PSYCHOLOGIST, CMP #### [facility] [address] [address] [address] Kaitlynn Joseph EGFR-AF BELGIAN >60 Normal >=60 [facility] Comment on above: Performed By: #### B VOCATIONAL PSYCHOLOGIST, CMP #### [facility] [address] [address] [address] Kaitlynn Joseph EGFR-NON AF BELGIAN >60 Normal >=60 [facility] Comment on above: Performed By: #### B VOCATIONAL PSYCHOLOGIST, CMP #### [facility] [address] [place] [address] Dr. Kaitlynn Joseph Globulin (S) [Mass/Vol] 3.7 g/dL Normal [facility] Comment on above: Performed By: #### B VOCATIONAL PSYCHOLOGIST, CMP #### [facility] [address] [address] [address] Kaitlynn Joseph Glucose [Mass/Vol] 101 mg/dL Normal 74-106 [facility] Comment on above: Performed By: #### B VOCATIONAL PSYCHOLOGIST, CMP #### [facility] [address] [place] [address] Dr. Kaitlynn Joseph Potassium [Moles/Vol] 4.2 mmol/L Normal 3.5-5.1 [facility] Comment on above: Performed By: #### B VOCATIONAL PSYCHOLOGIST, CMP #### [facility] [address] [address] [address] Kaitlynn Joseph Protein [Mass/Vol] 7.6 g/dL Normal 6.4-8.2 [facility] Comment on above: Performed By: #### B VOCATIONAL PSYCHOLOGIST, CMP #### [facility] [address] [place] [address] Dr. Kaitlynn Joseph Sodium [Moles/Vol] 143 mmol/L Normal 136-145 [facility] Comment on above: Performed By: #### B VOCATIONAL PSYCHOLOGIST, CMP #### [facility] [address] [place] [address] Dr. Kaitlynn Joseph Urea nitrogen [Mass/Vol] 21.0 mg/dL Critically high 7.0-18.0 [facility] Comment on above: Performed By: #### B VOCATIONAL PSYCHOLOGIST, CMP #### [facility] [address] [place] [address] Dr. Kaitlynn Joseph Urea nitrogen/Creatinine [Mass ratio] 24.4 mg/mg Normal [facility] Comment on above: Performed By: #### B VOCATIONAL PSYCHOLOGIST, CMP #### [facility] [address] [place] [address] Dr. Kaitlynn Joseph CBC AUTO DIFFon 02-19-2022 BASO # 0.0 103/ul Normal 0.0-0.1 [facility] Comment on above: Performed By: #### C BC #### [facility] [address] [place] [address] Dr. Kaitlynn Joseph Basophils/100 WBC (Bld) 0.5 % Normal 0.2-2.0 [facility] Comment on above: Performed By: #### C BC #### [facility] [address] [place] [address] Dr. Kaitlynn Joseph EO # 0.1 103/ul Normal 0.0-0.7 [facility] Comment on above: Performed By: #### C BC #### [facility] [address] [place] [address] Dr. Kaitlynn Joseph Eosinophils/100 WBC (Bld) 2.1 % Normal 0.9-7.0 [facility] Comment on above: Performed By: #### C BC #### [facility] [address] [place] [address] Dr. Kaitlynn Joseph Erythrocyte distribution width (RBC) [Ratio] 14.5 % Normal 11.0-15.0 [facility] Comment on above: Performed By: #### C BC #### [facility] [address] [place] [address] Dr. Kaitlynn Joseph Hematocrit (Bld) [Volume fraction] 42.0 % Normal 36.0-48.0 [facility] Comment on above: Performed By: #### C BC #### [facility] [address] [place] [address] Dr. Kaitlynn Joseph Hemoglobin (Bld) [Mass/Vol] 13.4 g/dL Normal 12.0-16.0 [facility] Comment on above: Performed By: #### C BC #### [facility] [address] [place] [address] Dr. Kaitlynn Joseph IG # 0.02 10e3/ul Normal 0.00-0.03 [facility] Comment on above: Performed By: #### C BC #### [facility] [address] [place] [address] Dr. Kaitlynn Joseph IG % 0.3 % Normal 0.0-0.5 [facility] Comment on above: Performed By: #### C BC #### [facility] [address] [place] [address] Dr. Kaitlynn Joseph LYMPH # 1.5 103/ul Normal 1.2-3.8 [facility] Comment on above: Performed By: #### C BC #### [facility] [address] [place] [address] Dr. Kaitlynn Joseph Lymphocytes/100 WBC (Bld) 25.0 % Normal 20.5-60.0 [facility] Comment on above: Performed By: #### C BC #### [facility] [address] [place] [address] Dr. Kaitlynn Joseph MANUAL DIFF REQ NO Normal [facility] Comment on above: Performed By: #### C BC #### [facility] [address] [place] [address] Dr. Kaitlynn Joseph MCH (RBC) [Entitic mass] 28.4 pg Normal 26.7-34.0 [facility] Comment on above: Performed By: #### C BC #### [facility] [address] [place] [address] Dr. Kaitlynn Joseph MCHC (RBC) [Mass/Vol] 31.9 g/dL Normal 29.9-35.2 [facility] Comment on above: Performed By: #### C BC #### [facility] [address] [address] [address] Kaitlynn Joseph MCV (RBC) [Entitic vol] 89.0 fL Normal 81.0-99.0 [facility] Comment on above: Performed By: #### C BC #### [facility] [address] [address] [address] Kaitlynn Joseph MONO # 0.7 103/ul Normal 0.3-0.8 [facility] Comment on above: Performed By: #### C BC #### [facility] [address] [place] [address] Dr. Kaitlynn Joseph Monocytes/100 WBC (Bld) 11.4 % Normal 1.7-12.0 [facility] Comment on above: Performed By: #### C BC #### [facility] [address] [place] [address] Dr. Kaitlynn Joseph NEUT # 3.7 103/ul Normal 1.4-6.5 [facility] Comment on above: Performed By: #### C BC #### [facility] [address] [place] [address] Dr. Kaitlynn Joseph Neutrophils/100 WBC (Bld) 60.7 % Normal 43.0-75.0 [facility] Comment on above: Performed By: #### C BC #### [facility] [address] [place] [address] Dr. Kaitlynn Joseph Platelet mean volume (Bld) [Entitic vol] 10.8 fL Normal 9.5-13.5 [facility] Comment on above: Performed By: #### C BC #### [facility] [address] [place] [address] Dr. Kaitlynn Joseph PLT 272 103/ul Normal 150-450 [facility] Comment on above: Performed By: #### C BC #### [facility] [address] [place] [address] Dr. Kaitlynn Joseph RBC 4.72 106/ul Normal 4.20-5.40 [facility] Comment on above: Performed By: #### C BC #### [facility] [address] [address] [address] Kaitlynn Joseph WBC 6.2 103/ul Normal 4.0-11.0 [facility] Comment on above: Performed By: #### C BC #### [facility] [address] [address] [address] Kaitlynn Joseph PROF CHEM 8 (BAS METB)on Anion gap [Moles/Vol] 12.4 mmol/L Normal [facility] Comment on above: Performed By: #### B MP #### [facility] [address] [place] [address] Dr. Kaitlynn Joseph Calcium [Mass/Vol] 9.0 mg/dL Normal 8.5-10.1 [facility] Comment on above: Performed By: #### B MP #### [facility] [address] [place] [address] Dr. Kaitlynn Joseph Chloride [Moles/Vol] 103 mmol/L Normal 98-107 [facility] Comment on above: Performed By: #### B MP #### [facility] [address] [place] [address] Dr. Kaitlynn Joseph CO2 [Moles/Vol] 28.9 mmol/L Normal 21.0-32.0 [facility] Comment on above: Performed By: #### B MP #### [facility] [address] [place] [address] Dr. Kaitlynn Joseph Creatinine [Mass/Vol] 0.93 mg/dL Normal 0.55-1.02 [facility] Comment on above: Performed By: #### B MP #### [facility] [address] [place] [address] Dr. Kaitlynn Joseph EGFR-AF BELGIAN >60 Normal >=60 [facility] Comment on above: Performed By: #### B MP #### [facility] [address] [place] [address] Dr. Kaitlynn Joseph EGFR-NON AF BELGIAN 58 mL/min/1.73m2 Critically low >=60 [facility] Comment on above: Performed By: #### B MP #### [facility] [address] [place] [address] Dr. Kaitlynn Joseph Glucose [Mass/Vol] 105 mg/dL Normal 74-106 [facility] Comment on above: Performed By: #### B MP #### [facility] [address] [address] [address] Kaitlynn Joseph Potassium [Moles/Vol] 4.3 mmol/L Normal 3.5-5.1 [facility] Comment on above: Performed By: #### B MP #### [facility] [address] [address] [address] Kaitlynn Joseph Sodium [Moles/Vol] 140 mmol/L Normal 136-145 [facility] Comment on above: Performed By: #### B MP #### [facility] [address] [address] [address] Kaitlynn Joseph Urea nitrogen [Mass/Vol] 21.0 mg/dL Critically high 7.0-18.0 [facility] Comment on above: Performed By: #### B MP #### [facility] [address] [address] [address] Kaitlynn Joseph Urea nitrogen/Creatinine [Mass ratio] 22.6 mg/mg Normal [facility] Comment on above: Performed By: #### B MP #### [facility] [address] [address] [address] Kaitlynn Joseph Encounters Encounter Date Encounter Type Care Provider Facility Start: 11-04-2024 ambulatory Jessie L Cindy Facility: [facility] Start: 11-03-2024 End: 11-03-2024 ambulatory Jessie L Cindy Facility:[facility] Start: 10-11-2024 End: 10-11-2024 ambulatory Jose Pink Facility:[facility] Start: 08-31-2024 End: 08-31-2024 ambulatory [facility] Start: 04-08-2024 End: 04-08-2024 ambulatory Jessie L Cindy Facility:[facility] Start: 02-05-2024 End: 02-05-2024 ambulatory [facility] Start: 12-16-2023 End: 12-16-2023 ambulatory Jessie L Cindy Facility:[facility] Start: 12-02-2023 End: 12-02-2023 ambulatory Jessie L Cindy Facility: [facility] Start: 01-02-2023 End: 01-03-[address] MELISSA QUINONES Facility:[facility] Start: 11-26-2022 End: 11-27-[address] MELISSA QUINONES Facility:[facility] Start: 02-19-2022 End: 02-20-[address] MELISSA QUINONES Facility:[facility] Start: 02-08-2019 End: 02-09-2019 Patient encounter procedure DEFAULT PHYSICIAN Facility:[facility] Payers Date Payer Category Payer Medicare [id number] 1940 Unknown [id number] 2.16.8 [id number] 1940 Unknown [id number] 2.16.84 [id number] 1940 Unknown [id number] 2.16.84 [id number] 1940 Unknown [id number] 2.16.84 [id number] 1938 Unknown [id number] 2.16.8 [id number] 1938 Unknown [id number] 2.16.8 [id number] 1938 Unknown [id number] 2.16.8 [id number] 1938 Unknown [id number] 2.16.8 [id number] 1938 Unknown [id number] 2.16.8 [id number] 1938 Unknown [id number] 2.16.8 [id number] Unknown Clinical Note 10-11-2024 Note Date & Type Note Facility 10-11-2024 Note Nurse Consultation N ote Reason for Visit Pt presents today for high dose flu shot Physical Exam Vitals & Measurements T: 36.8 ???C(Oral) Assessment/Plan 1. Encounter for immunization (Z23: Encounter for immunization) Medications Albuterol (Eqv-Ventolin HFA) 90 mcg/inh inhalation [...] tab(s), Oral, Daily Allergies No Known Allergies Immunizations Vaccine Date Status Comments influenza virus vaccine, inactivated 10/11/2024 Given influenza virus vaccine, inactivated 08/06/2023 Given SARS-CoV-2 (COVID-19) [id number] 08/25/2022 Recorded 2023-11-30: [id number] influenza virus vaccine, inactivated 08/31/2021 Recorded SARS-CoV-2 (COVID-19) mRNA-1273 vaccine 08/07/2021 Recorded SARS-CoV-2 (COVID-19) mRNA-1273 vaccine 11/28/2020 Recorded SARS-CoV-2 (COVID-19) mRNA-1273 vaccine 10/25/2020 Recorded influenza virus vaccine, inactivated 08/13/2019 Recorded influenza virus vaccine, inactivated 08/25/2018 Recorded influenza virus vaccine, inactivated 07/30/2016 Recorded pneumococcal 23-valent vaccine 08/02/2014 Recorded pneumococcal 23-valent vaccine 08/05/2002 Recorded [facility] Progress note 08-31-2024 Note Date & Type Note Facility 08-31-2024 Note [facility] Subjective Gisel Bennett is a 84 y.o. year old female patient being seen for 6 mo follow up valve disorder, chronic diastolic heart failure, and hypertension. She had routine echo a few weeks ago, but hasn't had labs in a long time (since Nov 2022). Denies chest pain, but is SOB w/wo rest at times. Patient denies this has worsened. Gets palpitations once in awhile , no more than her usual. Patient Active Problem List Diagnosis Benign essential hypertension Chest pain Chronic obstructive lung disease (CMS/HCC) Diaphragmatic hernia Osteoporosis Palpitations Tricuspid valve regurgitation Vaginal wall prolapse Extrinsic asthma History of ovarian cancer Nonrheumatic tricuspid valve disorder Paraesophageal hernia Arthritis of right knee BMI 27.0-27.9,adult Fatigue Gingivitis, acute Leg weakness, bilateral Low back pain Right knee pain Scoliosis Swelling of right knee joint Wellness examination Family History Problem Relation Name Age of Onset Asthma Other Cancer Other Social History Tobacco Use Smoking status: Never Smokeless tobacco: Never Substance Use Topics Alcohol use: Not Currently Drug use: Never HPI She is a 84 yo woman with prior history of: Tricuspid regurgitation COPD HTN Hx of hiatal hernia - surgery [facility]. She had a normal [...] She has no palpitations. No chest pain. Her recent echocardiogram 08/09/2024 showed normal ventricular systolic function and mild to moderate tricuspid regurgitation with mildly elevated right-sided pressures. Review of Systems Cardiovascular: Positive for dyspnea on exertion and palpitations ( once in awhile ). Respiratory: Positive for shortness of breath. Neurological: Positive for dizziness. Objective Visit Vitals BP 130/82 (BP Location: Left arm, Patient Position: Sitting) Pulse 75 Ht 1.575 m (5' 2 ) Wt 62.6 kg (138 lb) SpO2 98% BMI 25.24 kg/m??? Smoking Status Never BSA [...] left side. Heart sounds: Murmur heard. Systolic (RUSB, LLSB) murmur is present with a grade of 2/6. No friction rub. No gallop. Pulmonary: Effort: [...] mouth in the morning., Disp: , Rfl: celecoxib (CeleBREX) 200 mg capsule, Take 200 mg by mouth in the morning., Disp: , Rfl: cholecalciferol (Vitamin D-3) 25 MCG (1000 UT) capsule, Take 2 capsules every day by oral route., Disp: , Rfl: furosemide (Lasix) 20 mg tablet, Take 1 tablet (20 mg) by mouth in the (more content not included)... [facility] Progress note 02-05-2024 Note Date & Type Note Facility 02-05-2024 Note [facility] Subjective Gisel Bennett is a 83 [...] Hx of hiatal hernia - surgery [facility]. She had a normal [...] , Rfl: p (more content not included)... [facility] Summary Purpose Family History No Family [...] and content) DATE CREATED AUTHOR 02/14/2019 [facility] DATE CREATED AUTHOR AUTHOR'S ORGANIZ ATION 01/10/2023 [facility] DATE CREATED AUTHOR AUTHOR'S ORGANIZ ATION 09/03/2024 [facility] DATE CREATED AUTHOR AUTHOR'S ORGANIZ ATION 11/04/2024 [facility] DATE CREATED AUTHOR AUTHOR'S LIZBETH ATION 11/08/2024 Imogene Andrew [facility] FOR RECORDS PERTAINING TO PATIENTS WHO [...] BE BASED ON THE PRIMARY CLINICAL RECORDS. [facility] [employer] [facility]. provides no warranty or guarantee of the accuracy or completeness of information in this document.
== END 2024-11-08 12:46 | disposition home or self-care (01) ==
LOC: US 12:45
PROVIDERS: PCP Family Medicine; Visit Provider Nurse Practitioner
DX: R41.3 Other amnesia (principal); R44.3 Hallucinations, unspecified; R09.89 Other specified symptoms and signs involving the circulatory and respiratory systems
CPT/HCPCS: 93880

== ENCOUNTER 2025-02-07 10:50 | Outpatient (OUT) | payer MEDICARE, SELFPAY ==
[2025-02-07 11:07] LABS: Basophils Percent Auto 0.6 % (0.2-2.0); Eosinophils Absolute Auto 0.1 10^3/uL (0.0-0.7); Eosinophils Percent Auto 1.4 % (0.9-7.0); Hematocrit 39.5 % (36.0-48.0); Hemoglobin 13.1 g/dL (12.0-16.0); Immature Granulocytes Abs Auto 0.03 10^3/uL (0.00-0.03); Immature Granulocytes Pct Auto 0.5 % (0.0-0.5); Lymphocytes Absolute Auto 1.5 10^3/uL (1.2-3.8); Lymphocytes Percent Auto 23.1 % (20.5-60.0); Mean Corpuscular HGB Conc 33.2 g/dL (29.9-35.2); Mean Corpuscular Volume 87.4 fL (81.0-99.0); Mean Platelet Volume 10.3 fL (9.5-13.5); Monocytes Absolute Auto 0.6 10^3/uL (0.3-0.8); Monocytes Percent Auto 9.4 % (1.7-12.0); Neutrophils Absolute Auto 4.1 10^3/uL (1.4-6.5); Platelet Count 271 10^3/uL (150-450); Red Blood Count 4.52 10^6/uL (4.20-5.40); Red Cell Distribution Width 14.5 % (11.0-15.0); White Blood Count 6.3 10^3/uL (4.0-11.0)
[2025-02-07 11:33] LABS: Alanine Aminotransferase 26 U/L (14-59); Albumin Level 3.6 g/dL (3.4-5.0); Alkaline Phosphatase 62 U/L (46-116); Anion Gap 11.4; Aspartate Amino Transferase 18 U/L (15-37); BUN Creatinine Ratio 18.8; Bilirubin Total 0.5 mg/dL (0.2-1.0); Calcium 9.1 mg/dL (8.5-10.1); Carbon Dioxide 31.3 mmol/L (21.0-32.0); Chloride 103 mmol/L (98-107); Estimated GFR (African America >60 (>=60 mL/min/1.73m^2); Estimated GFR (Non-African Ame 52 (>=60 mL/min/1.73m^2); Globulin 3.5 g/dL; Glucose 102 mg/dL (74-106); Potassium 3.7 mmol/L (3.5-5.1); Sodium 142 mmol/L (136-145); Total Protein 7.1 g/dL (6.4-8.2)
== END 2025-02-07 10:51 | disposition home or self-care (01) ==
LOC: LAB 10:51
PROVIDERS: PCP Family Medicine; Visit Provider Internal Medicine Interventional Cardiology
DX: I11.0 Hypertensive heart disease with heart failure (principal); I50.32 Chronic diastolic (congestive) heart failure
CPT/HCPCS: 36415; 80053; 85025